=== PATIENT | male | born 1945 | race Caucasian/White ===

== ENCOUNTER 2018-04-04 05:57 | Inpatient (IN) ==
--- NOTE | 2018-04-03 22:09 | Discharge Summary ---
<Ivet Diaz - Last Filed: 04/03/18 22:07> Date of Encounter: 04/03/18 - Discharge Diagnosis (1) Status post total hip replacement, right Priority: Primary Status: Acute (2) Arthritis of right hip Priority: Primary Status: Acute (3) HTN (hypertension) Priority: Secondary Status: Chronic Qualifiers: Hypertension type: essential hypertension Qualified Code(s): I10 - Essential (primary) hypertension (4) Obesity Priority: Secondary Status: Chronic Qualifiers: Obesity type: unspecified obesity type Obesity classification: unspecified obesity classification Serious obesity comorbidity presence: without serious comorbidity Qualified Code(s): E66.9 - Obesity, unspecified (5) Insomnia Priority: Secondary Status: Chronic Qualifiers: Insomnia type: unspecified Qualified Code(s): G47.00 - Insomnia, unspecified (6) Chronic kidney disease (CKD) Priority: Secondary Status: Chronic Qualifiers: Chronic kidney disease stage: stage 2 (mild) Qualified Code(s): N18.2 - Chronic kidney disease, stage 2 (mild) (7) Anemia Priority: Secondary Status: Chronic Qualifiers: Anemia type: unspecified type Qualified Code(s): D64.9 - Anemia, unspecified - Hospital Course Hospital course: Mr. Ortiz is a 72 year old male - Time Spent with Patient Total time spent providing and/or coordinating discharge services: - Discharge Medications Home Medications: Aspirin Enteric Coated [Aspirin EC] 325 mg PO BID #20 tablet. 04/03/18 [Rx] OxyCODONE Immed Rel [Roxicodone 5 MG] 5 mg PO Q6HR PRN 7 Days #28 tablet [Rx] Atorvastatin [Lipitor] 40 mg PO DAILY 04/04/18 [History] Indomethacin 75 mg PO BID 04/04/18 [History] Indomethacin [Indocin] 25 mg PO BID PRN 04/04/18 [History] Latanoprost [Xalatan] 1 drop OP HS 04/04/18 [History] Lisinopril [Zestril] 20 mg PO DAILY 04/04/18 [History] Multivit-Min/FA/Lycopen/Lutein [Centrum Silver Men Tablet] 1 tab PO DAILY [History] Zolpidem [Ambien] 10 mg PO DAILY 04/04/18 [History] hydroCHLOROthiazide [Hydrochlorothiazide] 12.5 mg PO DAILY 04/04/18 [History] Allergies/Adverse Reactions: 3 Allergy/AdvReac Type Severity Reaction Status Date / Time No Known Allergies Allergy Verified 04/04/18 06:23 Primary care physician: Jim Reid MD - Patient Status Disposition: Home Health Service Condition: Good - Discharge Instructions Follow Up With: Jim Reid MD [Primary Care Provider] - <Jose Angel Saunders Irwin - Last Filed: 04/06/18 06:48> Orders not resulted at time of discharge: Pending orders 04/04/18 00:01 XR hip complete RT [XR] Routine H/H [Hemoglobin and Hematocrit] [HEME] Routine Date of Encounter: 04/06/18 Time of Encounter: 06:47 - Discharge Diagnosis (1) Obesity (BMI 30.0-34.9) Priority: Secondary Status: Chronic (2) Arthritis of right hip Priority: Primary Status: Chronic (3) HTN (hypertension) Priority: Secondary Status: Chronic Qualifiers: Hypertension type: essential hypertension Qualified Code(s): I10 - Essential (primary) hypertension (4) Insomnia Priority: Secondary Status: Chronic Qualifiers: Insomnia type: unspecified Qualified Code(s): G47.00 - Insomnia, unspecified (5) Chronic kidney disease (CKD) Priority: Secondary Status: Chronic Qualifiers: Chronic kidney disease stage: stage 2 (mild) Qualified Code(s): N18.2 - Chronic kidney disease, stage 2 (mild) (6) Anemia Priority: Secondary Status: Chronic Qualifiers: Anemia type: unspecified type Qualified Code(s): D64.9 - Anemia, unspecified (7) Status post total hip replacement, right Priority: Primary Status: Acute - Hospital Course Hospital course: Mr. Ortiz is a 72 year old male Status post right total hip replacement The patient had an uneventful postoperative course. They received antibiotics and physical therapy and were discharged in stable condition. There will follow -up in the office in 2 weeks. - Time Spent with Patient Total time spent providing and/or coordinating discharge services: Primary care physician: Jim Reid MD - Patient Status Functional capacity at discharge: uses cane/walker Overall status at discharge: patient is progressing back to baseline
[2018-04-04] MEDS ORDERED: CeFAZolin Syr 2,000MG/20 ML 2,000 MG/20 ML SYRINGE IVPB ONE (06:18)
[2018-04-04] MEDS ORDERED: Ringers Solution, Lactated 1,000 ML IVC SCH (06:30)
--- NOTE | 2018-04-04 06:43 | History & Physical Report ---
Date of Encounter: 04/04/18 Time of Encounter: 06:43 24 Hour HP Update - Instructions Instructions: If the History and Physical is less than 30 days old and was completed prior to A.M. admission and or procedure and has NOT been updated on calendar day of procedure please complete this update prior to performing procedure. - Update Patient reports changes in Medical Condition: No Changes in examination, assessment, or condition: No Changes in Medication: No Preop tests/diagnostics Reviewed: Yes Surgery Remains Indicated: Yes Consent for Planned Operative Procedure(s) Verified: Yes - Pre-Operative Checklist Preoperative Checklist Indicated: No Prophylactic Antibiotic Ordered: Yes Is VTE Prophylaxis Indicated?: Yes
[2018-04-04] MEDS ORDERED: Famotidine 20 MG/2 ML VIAL IVP ONE (07:09)
[2018-04-04] MEDS ORDERED: Ondansetron 4 MG/2 ML VIAL ONE (07:10)
[2018-04-04] MEDS ORDERED: *HR* FentaNYL (PF) 100 MCG/2 ML VIAL ONE (07:10)
[2018-04-04] MEDS ORDERED: Pregabalin 75 MG CAPSULE PO ONE (07:10)
[2018-04-04] MEDS ORDERED: *HR* Propofol 200 MG/20 ML VIAL IVP ONE (07:10)
[2018-04-04] MEDS ORDERED: Lidocaine -MPF 2% 2 ML VIAL ONE (07:10)
--- NOTE | 2018-04-04 07:13 | Anesthesia Evaluation PreOp ---
Date of Encounter: 04/04/18 Time of Encounter: 07:10 - Past History Planned Operation: Rt THR Cardiac History: HTN, Hyperlipidemia Pulmonary History: Denies Any Significant HX [employer] History: Denies Any Significant HX Other Medical History: Renal (CKD) Anesthesia History: No Prior Anesthetic Complications Alcohol Use: occasionally Drug use: none Medications and Allergies Aspirin Enteric Coated [Aspirin EC] 325 mg PO BID #20 tablet. 04/03/18 [Rx] OxyCODONE Immed Rel [Roxicodone 5 MG] 5 mg PO Q6HR PRN 7 Days #28 tablet [Rx] Atorvastatin [Lipitor] 40 mg PO DAILY 04/04/18 [History] Indomethacin 75 mg PO BID 04/04/18 [History] Indomethacin [Indocin] 25 mg PO BID PRN 04/04/18 [History] Latanoprost [Xalatan] 1 drop OP HS 04/04/18 [History] Lisinopril [Zestril] 20 mg PO DAILY 04/04/18 [History] Multivit-Min/FA/Lycopen/Lutein [Centrum Silver Men Tablet] 1 tab PO DAILY [History] Zolpidem [Ambien] 10 mg PO DAILY 04/04/18 [History] hydroCHLOROthiazide [Hydrochlorothiazide] 12.5 mg PO DAILY 04/04/18 [History] 3 Allergy/AdvReac Type Severity Reaction Status Date / Time No Known Allergies Allergy Verified 04/04/18 06:23 - Meds/Allergy Pre-op Review Medications Reviewed: Yes Allergies Reviewed: Yes Beta Blockers on Current Med List: No Anesthesia Results - Labs Laboratory Tests 03/31/18 03/31/18 03/31/18 16:09 16:09 16:09 Hgb 11.2 L Hct 33.3 L Plt Count 263 PT 13.1 H INR 1.2 APTT 30.3 Sodium 132 L Potassium 4.7 BUN 57 H Creatinine 1.52 H - Imaging EKG: report reviewed (SR) Anesthesia Exam O2 Sat Height 1.78 m Height 1.78 m Height 1.78 m Weight 98.43 kg Weight 98.43 kg Weight 98.43 kg O2 Sat by Pulse Oximetry 96 Vital Signs Temp Pulse Resp BP Pulse Ox 99.1 F 90 18 113/75 96 04/04/18 06:24 04/04/18 06:24 04/04/18 06:24 04/04/18 06:24 04/04/18 06:24 Height: 5'10 Weight: 217 lbs NPO (# of Hours): MN Pain Scale: 2 - HEENT Pupil (Motor): Pupils equal, EOMI Mallampati: III Teeth: Normal Oral Opening: Less than or equal to 3 - [employer] LOC: Oriented [employer] Motor: Normal RUE, Normal LUE, Normal RLE, Normal LLE, Normal Face [employer] Sensory: Normal: RUE, LUE, RLE, LLE, Face - Cardiac Rhythm: Regular Murmur: None JVD: No Carotid Bruit: No - Pulmonary Breath Sounds: bilateral Clear Respiratory Effort: Symmetrical Anesthesia Assess/Plan ASA Score: 3 (HTN CKD Extreme Age) Modified Stow Scale for Level of Consciousness: Cooperative, oriented, and tranquil Anesthetic Plan: Regional, MAC Monitoring Plan: Standard Monitors Recovery Plan: PACU (Discussed SAB with MAC, possible GA, ahrees to proceed)
[2018-04-04] MEDS ORDERED: Ethanol\\Acetic Acid\\Na Ace\\Ben 1,000 ML IRRIG.SOLN IR ONE (07:18)
[2018-04-04] MEDS ORDERED: Morphine Sulfate/PF 5mg/10mL Vial ONE (07:21)
[2018-04-04] MEDS ORDERED: *HR* Midazolam HCl 2 MG/2 ML VIAL ONE (07:26)
[2018-04-04] MEDS ORDERED: Propofol 500 MG/50 ML INFUS..BTL ONE (07:31)
[2018-04-04] MEDS ORDERED: Dexamethasone 4 MG/ML VIAL ONE (08:01)
[2018-04-04] MEDS ORDERED: *HR* PHENYLEPHRINE 1,000 MCG/10 ML SYRINGE IVP ONE ×3 (08:02→08:51)
[2018-04-04] MEDS ORDERED: *HR* Promethazine 25 MG/ML VIAL IVP PRN (08:15)
--- NOTE | 2018-04-04 08:20 | Anesthesia Procedures ---
Date of Encounter: 04/04/18 Time of Encounter: 07:00 Procedures: Anesthesia - Epidural/Spinal Patient ID/Chart reviewed: Yes Patient examined: Yes Consent Obtained: Yes Supplemental Oxygen: Nasal Cannula (2) Sedation: Versed (mg): 1 Sedation: Fentanyl (mcg): 50 Site Prep: Aseptic Technique, Sterile prep and drape Patient position: upright Amount of Local Anesthetic used: 5 Interspace Used: L2-L3 Blood: No CSF: Yes Paresthesia: No Spinal Needle Gauge: 22 Spinal Dose: 10mg isobaric bupivacaine, Duramorph 0.3mg Procedure: Patient sittin, failed attempts at lumbar level, success at T10-11, after sterile prep 10mg bupivacaine isobaric with duramorp patient tolerated procedure well Vitals + FHT's: Vital Signs/O2 Sat/Glucose, Most Current Temp Pulse Resp BP Pulse Ox 04/04/18 07:47 98 123/80 98 04/04/18 07:34 92 122/81 100 04/04/18 06:24 99.1 F 90 18 113/75 96
--- NOTE | 2018-04-04 08:45 | Orthopedic Operative Note ---
Date of procedure: 04/04/18 Pre-op diagnosis: Right hip arthritis Post-op diagnosis: same Procedure: Procedure: Right Total Hip Replacment robotic-assisted Estimated blood loss: 200 cc Hardware: Metal and polyethylene replacement. Jose DM Cup: 58 cup Femoral size 11 stem Head: 0 head with Torie Procedural Notes: 5 mm short operative versus nonoperative side as measured by preoperative CT scan. Grade 4 arthritic changes femoral head acetabular socket , procedure performed with robotic assistance. Operative procedure: The patient was brought to the operating room and placed on the operating room table. After general anesthesia was administered the patient was placed in the lateral decubitus position with the operative leg up. All pressure points were padded appropriately and the head was stabilized in the neutral position. The operative extremity was prepped and draped in the sterile surgical fashion patient received IV antibiotic prior to skin incision. 3 Steinmann pins were placed in the iliac crest 3 cm proximal to the anterior superior iliac spine this was for the robotic-assisted sensor. This was done through a small 2 cm incision. A standard posterior approach is made to the operative hip, the incision was made through the skin and subcutaneous tissue hemostasis was obtained with Bovie cautery. Using careful sharp dissection the fascia was identified and incised exposing the external rotators. The femoral checkpoint was placed leg length was measured at this time utilizing robotic assistance. The external rotators were released off the greater trochanter and tagged with # 2 FiberWire suture. The capsule was T'd open and the hip was brought into internal rotation. Patient noted to have grade 4 arthritic changes femoral head. The femoral neck cut was made at the appropriate level roughly 15 mm proximal to the lesser trochanter aced on preoperative templating. An anterior capsulotomy was performed for the anterior retractor. Soft tissues removed from the acetabulum. Patient noted to have grade 4 arthritic changes acetabulum. The acetabulum checkpoint was placed confirmed. The acetabulum was then mapped with robotic assistance. Based on the preoperative plan the acetabulum was reamed in one step with a 57 reamer. The 58 acetabulum was impacted with robotic assistance and 40 degrees of abduction and 11 degrees of anteversion. The hip was brought back in to internal rotation and prepared with the paper box maker followed by the canal finder followed by the reaming process to a size 11 /12 broaching process in 20 degrees anteversion. It was broached up to the appropriate size 11. Trial reduction revealed leg lengths close to normal. The femoral implant was impacted in place in 20 degrees of anteversion. Trial reduction found the hip to be stable with 8 head and Torie. The trials were removed and the real implants were impacted in place. The hip was reduced, patient had robotic confirmed leg length of 5 mm longer than the contralateral side. The hip had excellent stability with forward flexion to 90 degrees adduction of 30 degrees and internal rotation of 60 degrees. The hip had no shuck. The hips after 2 minutes with a Betadine saline solution. It was irrigated out with 2 L of pulse irrigation. The checkpoints were removed, Steinmann pins were removed. The hip was closed by the PA. The deep tissue was irrigated and closed deep with #1 PDS suture superficially with 0 PDS suture and skin was closed with Dermabond and zip tie. The patient was placed in a sterile dressing and abduction pillow. The patient was extubated and transferred to the recovery room in stable condition. Anesthesia: spinal Surgeon: Jose Angel Saunders Was there an temporary office assistant present: Yes Director: Ivet Diaz Estimated blood loss (cc): 200 Condition: stable Disposition: PACU
[2018-04-04] MEDS ORDERED: Naloxone 0.4 MG/ML INJ IVP PRN ×2 (09:44→10:18)
[2018-04-04] MEDS ORDERED: Ondansetron 4 MG/2 ML VIAL IVP PRN ×2 (09:44→10:18)
[2018-04-04] MEDS ORDERED: *HR* OxyCODONE/APAP 5/325 TABLET PO PRN ×2 (09:44→10:18)
[2018-04-04 09:45] LABS: Hematocrit 29.2 % (37.5-50.1); Hemoglobin 9.4 g/dL (12.9-16.9)
--- NOTE | 2018-04-04 09:46 | Anesthesia Evaluation Post Op ---
Date of Encounter: 04/04/18 Time of Encounter: 09:45 - Vital Signs Vital Signs: Vital Signs/O2 Sat/Glucose, Most Current Temp Pulse Resp BP Pulse Ox 04/04/18 09:40 98.3 F 71 15 109/66 99 04/04/18 09:30 69 15 107/68 100 04/04/18 09:20 74 15 105/69 95 04/04/18 09:10 98.6 F 86 12 105/69 97 04/04/18 07:47 98 123/80 98 04/04/18 07:34 92 122/81 100 04/04/18 06:24 99.1 F 90 18 113/75 96 - Lungs Lungs: Clear Ascult./Percussion - Airway Airway: Non-obstructed - Cardiovascular Regular Rate - Mental Status Mental Status: Alert & Oriented, Answers Appropriately - Pain Pain Scale: 0 - Nausea Vomiting Nausea Vomiting: Not Present - Hydration Hydration: Ice chips - Discharge PostOp Status: Transfer Patient to floor
[2018-04-04] MEDS ORDERED: Indomethacin 25 MG CAPSULE PO PRN (10:18)
[2018-04-04] MEDS ORDERED: Temazepam 15 MG CAPSULE PO PRN (10:18)
[2018-04-04] MEDS ORDERED: MOM Conc 10 ML UD.LIQ PO PRN (10:18)
[2018-04-04] MEDS ORDERED: Sennosides 8.6 MG TABLET PO PRN (10:18)
[2018-04-04] MEDS ORDERED: Multivit/Ca/Min/Fe/FA 1 TAB TABLET PO SCH (10:18)
[2018-04-04] MEDS ORDERED: *HR* OxyCODONE Immed Rel 5 MG TABLET PO PRN (10:18)
[2018-04-04] MEDS ORDERED: traMADol 50 MG TABLET PO PRN (10:18)
[2018-04-04] MEDS: hydroCHLOROthiazide 25 MG TABLET PO SCH (12:50)
[2018-04-04] MEDS: Lisinopril 20 MG TABLET PO SCH (12:52)
[2018-04-04] MEDS: Indomethacin 25 MG CAPSULE PO SCH ×2 (13:36→21:56)
[2018-04-04] MEDS: Ascorbic Acid 500 MG TABLET PO SCH ×2 (13:36→18:32)
[2018-04-04] MEDS: Multivit/Ca/Min/Fe/FA 1 TAB TABLET PO SCH (13:36)
--- NOTE | 2018-04-04 14:27 | Physician Discharge Referral ---
<Ivet Diaz - Last Filed: 04/04/18 14:27> Home Health/Hosp Referral Info Transfer to: Home Health Provider in Charge Post Discharge: PCP - Diagnosis (1) Status post total hip replacement, right Priority: Primary Status: Acute (2) Arthritis of right hip Priority: Primary Status: Chronic (3) HTN (hypertension) Status: Chronic (4) Obesity Status: Chronic (5) Insomnia Status: Chronic (6) Chronic kidney disease (CKD) Status: Chronic (7) Anemia Status: Chronic - Respiratory Orders None Smoking Cessation: Smoking cessation has been advised. For more information, call the [place] Tobacco Quit Line at 2-342-DUWS-NOW. - Activity Activity Orders: Up ad angelica, Ambulate, Walker - Services Needed Following services are medically necessary services: Nursing, Home Health Aide, Physical Therapy, Occupational Therapy - Transfer Medications Home Medications: Aspirin Enteric Coated [Aspirin EC] 325 mg PO BID #20 tablet. 04/03/18 [Rx] OxyCODONE Immed Rel [Roxicodone 5 MG] 5 mg PO Q6HR PRN 7 Days #28 tablet [Rx] Atorvastatin [Lipitor] 40 mg PO DAILY 04/04/18 [History] Indomethacin 75 mg PO BID 04/04/18 [History] Indomethacin [Indocin] 25 mg PO BID PRN 04/04/18 [History] Latanoprost [Xalatan] 1 drop OP HS 04/04/18 [History] Lisinopril [Zestril] 20 mg PO DAILY 04/04/18 [History] Multivit-Min/FA/Lycopen/Lutein [Centrum Silver Men Tablet] 1 tab PO DAILY [History] Zolpidem [Ambien] 10 mg PO DAILY 04/04/18 [History] hydroCHLOROthiazide [Hydrochlorothiazide] 12.5 mg PO DAILY 04/04/18 [History] Allergies/Adverse Reactions: 3 Allergy/AdvReac Type Severity Reaction Status Date / Time No Known Allergies Allergy Verified 04/04/18 06:23 Certification: Further, I certify that my clinical findings support that this patient is homebound (i.e. absences from home require considerable and taxing effort and are for medical reasons or adventism services or infrequently or short duration when for other reasons) because: Homebound Reason: Post-surgery restriction and or conditions limit ability to leave home Attestation: My signature below is to certify that this patient is under my care and that I, or nurse practitioner, or a physician's fleet assistant working with me, has a face-to -face encounter with this patient. <Jose Angel Saunders - Last Filed: 04/06/18 06:49> - Diagnosis (1) Obesity (BMI 30.0-34.9) Status: Chronic (2) Arthritis of right hip Status: Chronic (3) HTN (hypertension) Status: Chronic (4) Insomnia Status: Chronic (5) Chronic kidney disease (CKD) Status: Chronic (6) Anemia Status: Chronic (7) Status post total hip replacement, right Status: Acute - Respiratory Orders Smoking Cessation: Smoking cessation has been advised. For more information, call the [place] Tobacco Quit Line at 3-089-IWKZ-NOW. Certification: Further, I certify that my clinical findings support that this patient is homebound (i.e. absences from home require considerable and taxing effort and are for medical reasons or adventism services or infrequently or short duration when for other reasons) because: Attestation: My signature below is to certify that this patient is under my care and that I, or nurse practitioner, or a physician's fleet assistant working with me, has a face-to -face encounter with this patient.
[2018-04-04] MEDS ORDERED: 0.9 % Sodium Chloride 250 ML ONE (14:36)
[2018-04-04] MEDS ORDERED: *HR* Enoxaparin 30 MG/0.3 ML SYRINGE SQ SCH (18:00)
[2018-04-04] MEDS: CeFAZolin Pre 2,000 MG/100 ML 2,000 MG/100 ML BAG IVPB SCH (18:29)
[2018-04-04] MEDS: Ringers Solution, Lactated 1,000 ML IVC SCH (18:32)
[2018-04-04] MEDS: *HR* Enoxaparin 30 MG/0.3 ML SYRINGE SQ SCH (18:32)
[2018-04-04] MEDS: Latanoprost 2.5 ML BOTTLE BOTH EYES SCH (22:43)
[2018-04-05] MEDS: CeFAZolin Pre 2,000 MG/100 ML 2,000 MG/100 ML BAG IVPB SCH (00:11)
[2018-04-05] MEDS ORDERED: 0.9 % Sodium Chloride 250 ML ONE (00:43)
[2018-04-05] MEDS: *HR* Enoxaparin 30 MG/0.3 ML SYRINGE SQ SCH ×2 (05:28→17:17)
--- NOTE | 2018-04-05 06:23 | Orthopedics Progress Note ---
Date of Encounter: 04/05/18 Time of Encounter: 06:22 - Assessment and Plan (1) Obesity (BMI 30.0-34.9) Current Visit: Yes Status: Chronic (2) Arthritis of right hip Current Visit: No Status: Chronic (3) HTN (hypertension) Current Visit: No Status: Chronic Qualifiers: Hypertension type: essential hypertension Qualified Code(s): I10 - Essential (primary) hypertension (4) Insomnia Current Visit: No Status: Chronic Qualifiers: Insomnia type: unspecified Qualified Code(s): G47.00 - Insomnia, unspecified (5) Chronic kidney disease (CKD) Current Visit: No Status: Chronic Qualifiers: Chronic kidney disease stage: stage 2 (mild) Qualified Code(s): N18.2 - Chronic kidney disease, stage 2 (mild) (6) Anemia Current Visit: No Status: Chronic Qualifiers: Anemia type: unspecified type Qualified Code(s): D64.9 - Anemia, unspecified (7) Status post total hip replacement, right Current Visit: No Status: Acute Subjective Interval history: Patient was seen this morning doing well without complaints. Afebrile vital signs stable. Operative extremity: Neurovascularly intact Dressing clean dry and intact Calves nontender Assessment and plan: Continue with postoperative care Patient admitted with anemia, slight decrease postsurgical patient received 2 units for hypertension will monitor vitals today. Objective Vital signs: Vital Signs Temp Pulse Resp BP Pulse Ox 04/05/18 03:35 97.7 F 66 15 92/54 95 04/05/18 02:33 97.8 F 72 18 95/60 97 04/05/18 01:14 97.4 F L 72 15 100/65 97 04/05/18 00:59 98.3 F 69 15 90/53 95 04/04/18 23:07 98.0 F 72 18 91/52 96 04/04/18 21:47 86/50 04/04/18 19:58 98.7 F 72 18 83/43 97 04/04/18 17:35 97.6 F 77 16 89/52 95 04/04/18 16:42 97.6 F 77 18 87/51 95 04/04/18 15:15 97.9 F 73 16 90/56 98 04/04/18 14:55 97.8 F 74 16 91/52 97 04/04/18 14:42 97.8 F 74 16 83/50 97 04/04/18 11:49 98.3 F 83 18 104/68 97 04/04/18 10:56 97.9 F 74 16 100/63 98 04/04/18 09:51 97.4 F L 80 16 108/71 98 04/04/18 09:40 98.3 F 71 15 109/66 99 04/04/18 09:30 69 15 107/68 100 04/04/18 09:20 74 15 105/69 95 04/04/18 09:10 98.6 F 86 12 105/69 97 04/04/18 07:47 98 123/80 98 04/04/18 07:34 92 122/81 100 04/04/18 06:24 99.1 F 90 18 113/75 96 Intake and Output 04/04/18 04/04/18 04/05/18 15:59 23:59 07:59 Intake Total 240 / 240 964 / 964 300 / 300 Output Total 300 / 300 700 / 700 200 / 200 Balance -60 / -60 264 / 264 100 / 100 Intake: IV Fluids 100 / 100 Ancef Premix 2,000 MG/100 ML 2, 100 / 100 000 mg In 100 ml @ 200 mls/hr IVPB Q8HR [facility] Rx#:[id number] Oral 240 / 240 600 / 600 0 / 0 Blood Product 0 / 0 264 / 264 300 / 300 Rbcs Leuko Poor As-1 Unit 300 / 300 [id number] Rbcs Leuko Poor As-1 Unit 0 / 0 264 / 264 [id number] Output: Urine 0 / 0 200 / 200 Estimated Blood Loss 300 / 300 Straight Cath 700 / 700 Other: Meal Lunch Dinner Percent of Meal Consumed 80% 90% - Labs CBC & BMP: 04/04/18 09:25 Labs: Abnormal lab results Hgb 9.4 g/dL (12.9-16.9) L D 04/04/18 09:25 Hct 29.2 % (37.5-50.1) L 04/04/18 09:25 - VTE Documentation of Mechanical Device: Venous foot pump, device Consult Discharge Plan - Plan Referrals: Jim Reid MD [Primary Care Provider] -
[2018-04-05 07:15] LABS: Calcium 9.1 mg/dL (8.6-10.3); Potassium 4.9 mEq/L (3.5-5.1)
[2018-04-05] MEDS: Lisinopril 20 MG TABLET PO SCH (07:44)
[2018-04-05] MEDS: hydroCHLOROthiazide 25 MG TABLET PO SCH (07:44)
[2018-04-05] MEDS: Ascorbic Acid 500 MG TABLET PO SCH ×2 (07:48→17:17)
[2018-04-05] MEDS: Indomethacin 25 MG CAPSULE PO SCH ×2 (07:48→21:19)
[2018-04-05] MEDS: Multivit/Ca/Min/Fe/FA 1 TAB TABLET PO SCH (07:48)
[2018-04-05 07:52] LABS: Hematocrit 30.8 % (37.5-50.1); Hemoglobin 10.1 g/dL (12.9-16.9)
[2018-04-05] MEDS: Ringers Solution, Lactated 1,000 ML IVC SCH (10:38)
--- NOTE | 2018-04-05 12:17 | Event Note ---
Date of Encounter: 04/05/18 Time of Encounter: 12:15 PCR - POD#1 - Right THR Patient seen at bedside. Labs reviewed. CHRONIC KIDNEY DISEASE - LABS IMPROVED FROM HIS BASELINE BASELINE LABS: GFR: 45 Cre 1.52 NA - 132 04/05 labs: GFR: 49 Cre: 1.42 Pre-operative Anemia: H/H - 11.1/32 H/H - improved s/p 2 units of pRBCs 04/04 Pain control: yes Participating in PT. All questions and concerns addressed. Educated on use of incentive spirometer. Encouraged ambulation and proper hydration. Patient educated on post-operative restrictions and post-operative care. Addressed: home with hh - continuity placed Discharge plan: Home
[2018-04-05] MEDS: Latanoprost 2.5 ML BOTTLE BOTH EYES SCH (21:19)
[2018-04-06 01:52] LABS: Hematocrit 29.6 % (37.5-50.1); Hemoglobin 9.9 g/dL (12.9-16.9)
[2018-04-06 02:11] LABS: BUN/Creatinine Ratio 36 (6-26); Blood Urea Nitrogen 44 mg/dL (8-23); Calcium 9.2 mg/dL (8.6-10.3); Carbon Dioxide 25 mEq/L (23-29); Chloride 103 mEq/L (98-107); Glucose 137 mg/dL (70-105); Osmolality,Calculated 291 (280-300); Potassium 4.3 mEq/L (3.5-5.1); Sodium 134 mEq/L (136-145); eGFR For African Americans > 60 (> 60); eGFR For Non-African Americans 59 (> 60)
[2018-04-06] MEDS: *HR* Enoxaparin 30 MG/0.3 ML SYRINGE SQ SCH (05:26)
--- NOTE | 2018-04-06 06:49 | Orthopedics Progress Note ---
Date of Encounter: 04/06/18 Time of Encounter: 06:48 - Assessment and Plan (1) Obesity (BMI 30.0-34.9) Current Visit: Yes Status: Chronic (2) Arthritis of right hip Current Visit: No Status: Chronic (3) HTN (hypertension) Current Visit: No Status: Chronic Qualifiers: Hypertension type: essential hypertension Qualified Code(s): I10 - Essential (primary) hypertension (4) Insomnia Current Visit: No Status: Chronic Qualifiers: Insomnia type: unspecified Qualified Code(s): G47.00 - Insomnia, unspecified (5) Chronic kidney disease (CKD) Current Visit: No Status: Chronic Qualifiers: Chronic kidney disease stage: stage 2 (mild) Qualified Code(s): N18.2 - Chronic kidney disease, stage 2 (mild) (6) Anemia Current Visit: No Status: Chronic Qualifiers: Anemia type: unspecified type Qualified Code(s): D64.9 - Anemia, unspecified (7) Status post total hip replacement, right Current Visit: No Status: Acute Subjective Interval history: Patient was seen this morning doing well without complaints. Afebrile vital signs stable. Operative extremity: Neurovascularly intact Dressing clean dry and intact Calves nontender Assessment and plan: Continue with postoperative care Hematocrit 29.9 discharged today Objective Vital signs: Vital Signs Temp Pulse Resp BP Pulse Ox 04/06/18 06:38 97.6 F 85 18 110/69 97 04/06/18 03:33 98.3 F 78 17 93/61 96 04/05/18 23:25 98.9 F 91 18 131/79 94 04/05/18 19:15 98.2 F 87 17 128/76 99 04/05/18 14:40 98.4 F 80 18 100/66 99 04/05/18 10:32 98.2 F 72 18 114/70 98 Intake and Output 04/05/18 04/05/18 04/06/18 15:59 23:59 07:59 Intake Total 1100 / 1100 Output Total 400 / 400 300 / 300 Balance 1100 / 1100 -400 / -400 -300 / -300 Intake: IV Fluids 1000 / 1000 Lactated Ringers 1,000 ML @ 75 1000 / 1000 mls/hr IVC .[id number] [facility] Rx#: [id number] Oral 100 / 100 Output: Urine 400 / 400 300 / 300 Other: Meal Lunch Percent of Meal Consumed 95% # Voids 1 1 - Labs CBC & BMP: 04/06/18 01:36 04/06/18 01:36 Labs: Abnormal lab results Hgb 9.9 g/dL (12.9-16.9) L 04/06/18 01:36 Hct 29.6 % (37.5-50.1) L 04/06/18 01:36 Sodium 134 mEq/L (136-145) L 04/06/18 01:36 BUN 44 mg/dL (8-23) H 04/06/18 01:36 Est GFR (Non-Af Amer) 59 (> 60) L 04/06/18 01:36 BUN/Creatinine Ratio 36 (6-26) H 04/06/18 01:36 Glucose 137 mg/dL (70-105) H 04/06/18 01:36 - VTE Documentation of Mechanical Device: Venous foot pump, device Consult Discharge Plan - Plan Referrals: Jim Reid MD [Primary Care Provider] -
[2018-04-06] MEDS: Multivit/Ca/Min/Fe/FA 1 TAB TABLET PO SCH (08:32)
[2018-04-06] MEDS: Ascorbic Acid 500 MG TABLET PO SCH (08:32)
[2018-04-06] MEDS: hydroCHLOROthiazide 25 MG TABLET PO SCH (08:32)
[2018-04-06] MEDS: Lisinopril 20 MG TABLET PO SCH (08:32)
[2018-04-06] MEDS: Indomethacin 25 MG CAPSULE PO SCH (08:32)
[2018-04-06 11:32] VITALS: BP 132/76
== END 2018-04-06 13:51 | disposition home health service (06) | DRG 470 ==
LOC: SAMDAY 05:57 → 3NENU 10:05
PROVIDERS: ADMIT Orthopaedic Surgery; ATTEND Orthopaedic Surgery

== ENCOUNTER 2018-04-08 20:12 | Inpatient (IN) ==
[2018-04-08] MEDS ORDERED: *HR* FentaNYL (PF) 100 MCG/2 ML VIAL IVP ONE (20:32)
[2018-04-08] MEDS ORDERED: Ondansetron 4 MG/2 ML VIAL IVP ONE (20:32)
[2018-04-08] MEDS ORDERED: Pantoprazole 80 MG in 0.9 % Sodium Chloride 50 ML IVPB ONE (20:32)
[2018-04-08] MEDS ORDERED: 0.9 % Sodium Chloride 1,000 ML IVC ONE ×2 (20:32→21:53)
[2018-04-08 20:49] LABS: Hematocrit 36.5 % (37.5-50.1); Mean Corpuscular HGB Conc 34.5 g/dL (31.6-35.5); Mean Corpuscular Hemoglobin 33.2 pg (28.0-33.3); Mean Corpuscular Volume 96.3 fL (83.0-100.0); Mean Platelet Volume 8.6 fL (9.4-12.4); Monocytes # 0.7 K/mcL (0.0-1.3); Platelet Count 431 K/mcL (140-400); Red Blood Count 3.79 M/mcL (4.19-5.50); Red Cell Distribution Width 13.2 % (11.5-14.5)
[2018-04-08 20:51] LABS: Hemoglobin 12.6 g/dL (12.9-16.9)
[2018-04-08 20:56] LABS: INR 1.1; Prothrombin Time 12.3 Seconds (9.4-12.1)
--- NOTE | 2018-04-08 20:57 | Emergency Department Note ---
Disposition Clinical Impression: Elevated troponin I level, Perforated abdominal viscus Disposition: Admitted As Inpatient Condition: Fair Referrals: Jim Reid MD [Primary Care Provider] - Forms: ED Satisfaction Letter, Work/School Release Time of Disposition: 00:04 Abdominal Pain HPI - General Chief Complaint: ED Abdominal Pain Stated Complaint: ABD Pain Time Seen by Provider: 04/08/18 20:32 Source: EMS Mode of arrival: EMS Limitations: no limitations Nursing Notes Reviewed: Yes Vital Signs Reviewed: Yes - History of Present Illness HPI Narrative: This is a 72 year-old male with history of HTN, HLD, and arthritis who presented via EMS. He underwent right hip replacement 4 days ago and was discharged 2 days ago. He reports chronic abdominal pain, which he attributes to the Indocin he takes regularly for arthritis, but about 6 hours ago, the pain became very severe. He also notes dizziness, cold sweats, and dyspnea. He reports 2 dark (but he says not coffee-ground) BMs this morning, no bowel movement since then. He denies any vomiting. Patient denies any history of GIB. Pt Subjective Complaint: abdominal pain Onset (ago): hour(s) (6) Consistency: Worsening Location: diffuse Pain Severity: severe Pain Scale: 6 Quality: sharp Migration to: no migration Improves with: nothing Worsens with: movement Context: recent surgery/procedure Associated symptoms: Reports: melena. Denies: vomiting, fever, hematemesis, hematochezia - Related Data Home Medications Medication Instructions Recorded Confirmed Atorvastatin [Lipitor] 40 mg PO DAILY 04/04/18 04/04/18 Indomethacin 75 mg PO BID 04/04/18 04/04/18 Indomethacin [Indocin] 25 mg PO BID PRN 04/04/18 04/04/18 Latanoprost [Xalatan] 1 drop OP HS 04/04/18 04/04/18 Lisinopril [Zestril] 20 mg PO DAILY 04/04/18 04/04/18 Multivit-Min/FA/Lycopen/Lutein 1 tab PO DAILY 04/04/18 04/04/18 [Centrum Silver Men Tablet] Zolpidem [Ambien] 10 mg PO DAILY 04/04/18 04/04/18 hydroCHLOROthiazide 12.5 mg PO DAILY 04/04/18 04/04/18 [Hydrochlorothiazide] Previous Rx's Medication Instructions Recorded Aspirin Enteric Coated [Aspirin EC] 325 mg PO BID #20 tablet. 04/03/18 OxyCODONE Immed Rel [Roxicodone 5 5 mg PO Q6HR PRN 7 Days #28 tablet 04/03/18 MG] Allergies Allergy/AdvReac Type Severity Reaction Status Date / Time No Known Allergies Allergy Verified 04/04/18 06:23 All systems ED: reviewed and negative except as stated. Constitutional: Denies: fever Cardiovascular: Denies: chest pain Respiratory: Reports: dyspnea Gastrointestinal: Reports: abdominal pain. Denies: vomiting, hematemesis, hematochezia Abdominal Pain PMH - Past Medical History Medical history: Reports: arthritis, hyperlipidemia, hypertension Male Surgical History: Reports: herniorrhaphy, hip replacement Psychiatric history: Reports: no psych history - Social History Smoking status: Never smoker Alcohol use: Reports: none Drug use: Reports: none Physical Exam - General Limitations: no limitations General appearance: alert - Head Head exam: atraumatic, normocephalic - Eye Eye exam: Present: normal appearance. Absent: scleral icterus - ENT ENT exam: normal exam - Respiratory Respiratory exam: Present: normal lung sounds bilaterally. Absent: respiratory distress - Cardiovascular Cardiovascular exam: Present: normal rhythm, tachycardia - Abdominal Exam Abdominal exam: Present: soft, tenderness, distention. Absent: guarding, rebound, rigidity - Rectal Exam Weapons Officer present during exam: Yes Rectal exam: Present: normal rectal tone, heme (+) stool, other (dark but not melanotic stool) - Male exam: Present: normal inspection - Extremities Exam Extremities exam: Present: normal inspection - Neurological Exam Neurological exam: Present: alert, oriented X3. Absent: motor sensory deficit - Psychiatric Psychiatric exam: Present: normal affect, normal mood - Skin Skin exam: Present: warm, dry, intact, pallor Course - Reevaluation(s) Reevaluation #2: Updated patient and his about findings thus far and our plans based on Dr. Escamilla's recommendations. He asks that we discuss this with Dr. Reid, so we will page him. Time: 22:01 Reevaluation #3: Update patient on test results and plans and answered his questions. Time: 00:03 Additional Reevaluation(s): 00:30 - Discussed case with Dr. Sprague. He agrees for resident physician Dr. Winston to place the central line. I have discussed the procedure with patient, and he is in agreement. - Consultations Consultation #1: Received confirmation of free air from the radiologist. Paged surgeon marine service station attendant. Time: 21:47 Consultation #2: Discussed case with surgeon marine service station attendant, Dr. Escamilla. We will put down an NGT and give empiric antibiotics. He requests CT with oral contrast. Asks that the hospitalist admit patient to the ICU. Time: 20:50 Consultation #3: Discussed CT results with Dr. Escamilla. We will admit patient to ICU with NGT, which will be advanced. Paged hospitalist for admission. Time: 00:03 Additional Consultation(s): 12:30 AM - Discussed case with Dr. Ko, and he has accepted patient for admission to ICU. I've extended patient's antibiotic coverage to include Flagyl , per his request. Although patient's BP has been holding steady in the low/ normal range since intial hypotensive readings, he requests central line placement, if possible, but will accept patient regardless. Vital Signs Temperature 98.0 F 04/08/18 20:13 Pulse Rate 136 04/08/18 20:13 Respiratory Rate 20 04/08/18 20:13 Blood Pressure 71/49 04/08/18 20:13 O2 Sat by Pulse Oximetry 91 04/08/18 20:13 Temperature 98.0 F 04/08/18 20:13 Pulse Rate 118 04/08/18 23:31 Respiratory Rate 20 04/08/18 23:31 Blood Pressure 98/59 04/08/18 23:31 O2 Sat by Pulse Oximetry 95 04/08/18 23:31 Oxygen Delivery Oxygen Delivery Nasal Cannula Abdominal Pain - Lab Data Lab results reviewed: Yes I reviewed the patient's lab results. Result diagrams: 04/08/18 20:32 04/08/18 20:32 Lab Results 04/08/18 04/08/18 04/08/18 Range/Units 20:32 20:32 20:32 WBC 9.2 (4.3-11.1) K/mcL RBC 3.79 L (4.19-5.50) M/mcL Hgb 12.6 L D (12.9-16.9) g/dL Hct 36.5 L (37.5-50.1) % MCV 96.3 (83.0-100.0) fL MCH 33.2 (28.0-33.3) pg MCHC 34.5 (31.6-35.5) g/dL RDW 13.2 (11.5-14.5) % Plt Count 431 H (140-400) K/mcL MPV 8.6 L (9.4-12.4) fL Seg Neutrophils % 70.0 % Band Neutrophils % 16.0 H (0-4) % Lymphocytes % 4.0 % Monocytes % 8.0 % Metamyelocytes % 2.0 H (0) % Neutrophils # 7.9 (1.6-8.9) K/mcL Lymphocytes # 0.4 L (0.6-4.6) K/mcL Monocytes # 0.7 (0.0-1.3) K/mcL Platelet Estimate Slight increase H (Normal) PT 12.3 H (9.4-12.1) Seconds INR 1.1 APTT 26.8 (26.0-36.0) Seconds Sodium 134 L (136-145) mEq/L Potassium 4.3 (3.5-5.1) mEq/L Chloride 99 (98-107) mEq/L Carbon Dioxide 21 L (23-29) mEq/L BUN 38 H (8-23) mg/dL Creatinine 1.59 H (0.70-1.30) mg/dL Est GFR ( Amer) 52 L (> 60) Est GFR (Non-Af Amer) 43 L (> 60) BUN/Creatinine Ratio 24 (6-26) Glucose 157 H (70-105) mg/dL Calculated Osmolality 290 (280-300) Calcium 10.4 H (8.6-10.3) mg/dL Total Bilirubin 1.0 (0.3-1.0) mg/dL AST 34 (13-39) Units/L ALT 24 (7-52) Units/L Alkaline Phosphatase 110 H (34-104) Units/L Troponin I 0.04 H* (< 0.04) ng/mL Serum Total Protein 6.5 (6.4-8.9) g/dL Albumin 3.5 (3.5-5.7) g/dL Globulin 3.0 (2.4-3.5) g/dL Albumin/Globulin Ratio 1.2 (1.1-2.2) Lipase 47 (11-82) Units/L Blood Type Antibody Screen Crossmatch 04/08/18 Range/Units 20:40 WBC (4.3-11.1) K/mcL RBC (4.19-5.50) M/mcL Hgb (12.9-16.9) g/dL Hct (37.5-50.1) % MCV (83.0-100.0) fL MCH (28.0-33.3) pg MCHC (31.6-35.5) g/dL RDW (11.5-14.5) % Plt Count (140-400) K/mcL MPV (9.4-12.4) fL Seg Neutrophils % % Band Neutrophils % (0-4) % Lymphocytes % % Monocytes % % Metamyelocytes % (0) % Neutrophils # (1.6-8.9) K/mcL Lymphocytes # (0.6-4.6) K/mcL Monocytes # (0.0-1.3) K/mcL Platelet Estimate (Normal) PT (9.4-12.1) Seconds INR APTT (26.0-36.0) Seconds Sodium (136-145) mEq/L Potassium (3.5-5.1) mEq/L Chloride (98-107) mEq/L Carbon Dioxide (23-29) mEq/L BUN (8-23) mg/dL Creatinine (0.70-1.30) mg/dL Est GFR ( Amer) (> 60) Est GFR (Non-Af Amer) (> 60) BUN/Creatinine Ratio (6-26) Glucose (70-105) mg/dL Calculated Osmolality (280-300) Calcium (8.6-10.3) mg/dL Total Bilirubin (0.3-1.0) mg/dL AST (13-39) Units/L ALT (7-52) Units/L Alkaline Phosphatase (34-104) Units/L Troponin I (< 0.04) ng/mL Serum Total Protein (6.4-8.9) g/dL Albumin (3.5-5.7) g/dL Globulin (2.4-3.5) g/dL Albumin/Globulin Ratio (1.1-2.2) Lipase (11-82) Units/L Blood Type A POSITIVE Antibody Screen NEGATIVE Crossmatch See Detail - Radiology Data Radiology results reviewed: Yes I reviewed the patient's radiology results. XR/XR acute abdominal series IMPRESSION: 1. Subdiaphragmatic free air concerning for bowel perforation. CT of the abdomen and pelvis is recommended for further evaluation. 2. Low lung volumes with bibasilar atelectasis. 3. Dilated gas-filled loops of bowel in the mid abdomen may reflect ileus or small-bowel obstruction and can be evaluated at the time of CT. Findings were discussed with Nahid Monzon at 9:47 pm on 04/08/2018. CT/CT abd pelvis wo iv oral only IMPRESSION: Pneumoperitoneum. Ascites. Ileus. Sigmoid diverticulosis. Cholelithiasis. NG tube tip near the GE junction. Recommend advancing at 10-20 cm and reimaging. Ankylosing spondylitis. Nonobstructing nephroliths. - EKG Data EKG attestation: Yes I reviewed and interpreted this EKG. Rate: tachycardia [place]/QRS: left axis deviation When compared to previous EKG there are: previous EKG unavailable Interpretation: nonspecific ST-T wave changes
[2018-04-08 20:58] LABS: Activated Partial Thrombo Time 26.8 Seconds (26.0-36.0)
[2018-04-08 21:12] LABS: Lymphocytes # 0.4 K/mcL (0.6-4.6); Neutrophils # 7.9 K/mcL (1.6-8.9)
[2018-04-08 21:15] LABS: Albumin 3.5 g/dL (3.5-5.7); Albumin/Globulin Ratio 1.2 (1.1-2.2); Calcium 10.4 mg/dL (8.6-10.3); Potassium 4.3 mEq/L (3.5-5.1); Total Protein 6.5 g/dL (6.4-8.9)
[2018-04-08 21:18] LABS: Troponin I 0.04 ng/mL (< 0.04)
[2018-04-08] MEDS ORDERED: Ampicillin/Sulbactam 3,000 MG in 0.9 % Sodium Chloride Mini Bag 100 ML IVPB ONE (21:53)
[2018-04-09] MEDS ORDERED: MetroNIDAZOLE 500 MG/100 ML 500 MG/100 ML BAG IVPB ONE (00:29)
[2018-04-09] MEDS ORDERED: *HR* FentaNYL (PF) 100 MCG/2 ML VIAL IVP ONE (00:46)
--- NOTE | 2018-04-09 02:10 | Emergency Department Note ---
Disposition Clinical Impression: Elevated troponin I level, Perforated abdominal viscus Disposition: Admitted As Inpatient Condition: Fair General Adult HPI - General Chief complaint: ED Abdominal Pain Stated complaint: ABD Pain Time Seen by Provider: 04/08/18 20:32 Source: EMS Mode of arrival: EMS Limitations: no limitations - History of Present Illness HPI Narrative: I was asked by attending Dr. Flores to assist with placement of central line. Please see his note for further details. I was supervise by my ED attending Dr. Sprague. Pain Scale: 0 - Related Data Home Medications Medication Instructions Recorded Confirmed Atorvastatin [Lipitor] 40 mg PO DAILY 04/04/18 04/09/18 Indomethacin 75 mg PO BID 04/04/18 04/09/18 Indomethacin [Indocin] 25 mg PO BID PRN 04/04/18 04/09/18 Latanoprost [Xalatan] 1 drop OP HS 04/04/18 04/09/18 Lisinopril [Zestril] 20 mg PO DAILY 04/04/18 04/09/18 Multivit-Min/FA/Lycopen/Lutein 1 tab PO DAILY 04/04/18 04/09/18 [Centrum Silver Men Tablet] Zolpidem [Ambien] 10 mg PO DAILY 04/04/18 04/09/18 hydroCHLOROthiazide 12.5 mg PO DAILY 04/04/18 04/09/18 [Hydrochlorothiazide] Previous Rx's Medication Instructions Recorded Aspirin Enteric Coated [Aspirin EC] 325 mg PO BID #20 tablet. 04/03/18 OxyCODONE Immed Rel [Roxicodone 5 5 mg PO Q6HR PRN 7 Days #28 tablet 04/03/18 MG] Allergies Allergy/AdvReac Type Severity Reaction Status Date / Time No Known Allergies Allergy Verified 04/04/18 06:23 Constitutional: Denies: fever Cardiovascular: Denies: chest pain Respiratory: Reports: dyspnea Gastrointestinal: Reports: abdominal pain. Denies: vomiting, hematemesis, hematochezia Past Medical History - Past Medical History Medical history: Reports: arthritis, hyperlipidemia, hypertension Surgical history: Reports: other Psychiatric history: Reports: no psych history - Social History Smoking Status: Never smoker Smokeless Tobacco Status: No Alcohol use: Reports: none Drug use: Reports: none Physical Exam - General Limitations: no limitations General appearance: alert Course Vital Signs Temperature 98.0 F 04/08/18 20:13 Pulse Rate 136 04/08/18 20:13 Respiratory Rate 20 04/08/18 20:13 Blood Pressure 71/49 04/08/18 20:13 O2 Sat by Pulse Oximetry 91 04/08/18 20:13 Temperature 98.0 F 04/08/18 20:13 Pulse Rate 110 04/09/18 02:00 Respiratory Rate 20 04/09/18 02:00 Blood Pressure 91/58 04/09/18 02:00 O2 Sat by Pulse Oximetry 93 04/09/18 02:00 Oxygen Delivery Oxygen Delivery Nasal Cannula Procedures - Central Line Placement Right IJ Central Line Inserted*: Yes Central Line Catheter Replacement*: No Central Line Insertion: elective Consent Obtained: verbal consent, written consent Procedural Pause: verify patient name and date of , timeout performed per policy, jeannette and assess the site, assemble equipment and verify supplies, perform hand hygiene Patient Placed on Monitor/Pulse Ox: Yes During the Procedure: clinician is wearing sterile gloves, cap, mask,& gown during insertion, sterile field and sterile technique are maintained, patient's face is covered with drape or mask and wearing a cap, everyone in room is wearing a mask Central Line Prep: Chlorhexidine scrub Prep the Procedure Site: apply chloraprep to the skin using a back and forth scrubbing motion, apply chloraprep for 30 seconds (upper body), 1-2 min ( femoral sites), allow prep to dry, drape the patient with a full body drape Local Anesthetic: lidocaine 1% Amount of anesthesia used (mL): 2 Ultrasound Used for Placement: Yes Central Line Lumen Inserted: triple Post Procedure: sutured in place, good blood return, all ports aspirated, flushed, capped, sterile dressing applied, guide wire removed and visualized, dressing is dated Post Procedure X-Ray: tip of catheter in good position, no pneumothorax seen Patient Tolerated Procedure: well, no complications Complications: none Name of Clinician Inserting Central Line: Glenn Winston, Clinician Assisting/Completing Checklist: Dr. Roberto Sprague Date: 04/09/18 Time: 02:10 Medical Decision Making - Lab Data Result diagrams: 04/08/18 20:32 04/08/18 20:32 Lab Results 04/08/18 04/08/18 04/08/18 Range/Units 20:32 20:32 20:32 WBC 9.2 (4.3-11.1) K/mcL RBC 3.79 L (4.19-5.50) M/mcL Hgb 12.6 L D (12.9-16.9) g/dL Hct 36.5 L (37.5-50.1) % MCV 96.3 (83.0-100.0) fL MCH 33.2 (28.0-33.3) pg MCHC 34.5 (31.6-35.5) g/dL RDW 13.2 (11.5-14.5) % Plt Count 431 H (140-400) K/mcL MPV 8.6 L (9.4-12.4) fL Seg Neutrophils % 70.0 % Band Neutrophils % 16.0 H (0-4) % Lymphocytes % 4.0 % Monocytes % 8.0 % Metamyelocytes % 2.0 H (0) % Neutrophils # 7.9 (1.6-8.9) K/mcL Lymphocytes # 0.4 L (0.6-4.6) K/mcL Monocytes # 0.7 (0.0-1.3) K/mcL Platelet Estimate Slight increase H (Normal) PT 12.3 H (9.4-12.1) Seconds INR 1.1 APTT 26.8 (26.0-36.0) Seconds Sodium 134 L (136-145) mEq/L Potassium 4.3 (3.5-5.1) mEq/L Chloride 99 (98-107) mEq/L Carbon Dioxide 21 L (23-29) mEq/L BUN 38 H (8-23) mg/dL Creatinine 1.59 H (0.70-1.30) mg/dL Est GFR ( Amer) 52 L (> 60) Est GFR (Non-Af Amer) 43 L (> 60) BUN/Creatinine Ratio 24 (6-26) Glucose 157 H (70-105) mg/dL Calculated Osmolality 290 (280-300) Calcium 10.4 H (8.6-10.3) mg/dL Total Bilirubin 1.0 (0.3-1.0) mg/dL AST 34 (13-39) Units/L ALT 24 (7-52) Units/L Alkaline Phosphatase 110 H (34-104) Units/L Troponin I 0.04 H* (< 0.04) ng/mL Serum Total Protein 6.5 (6.4-8.9) g/dL Albumin 3.5 (3.5-5.7) g/dL Globulin 3.0 (2.4-3.5) g/dL Albumin/Globulin Ratio 1.2 (1.1-2.2) Lipase 47 (11-82) Units/L Blood Type Antibody Screen Crossmatch 04/08/18 Range/Units 20:40 WBC (4.3-11.1) K/mcL RBC (4.19-5.50) M/mcL Hgb (12.9-16.9) g/dL Hct (37.5-50.1) % MCV (83.0-100.0) fL MCH (28.0-33.3) pg MCHC (31.6-35.5) g/dL RDW (11.5-14.5) % Plt Count (140-400) K/mcL MPV (9.4-12.4) fL Seg Neutrophils % % Band Neutrophils % (0-4) % Lymphocytes % % Monocytes % % Metamyelocytes % (0) % Neutrophils # (1.6-8.9) K/mcL Lymphocytes # (0.6-4.6) K/mcL Monocytes # (0.0-1.3) K/mcL Platelet Estimate (Normal) PT (9.4-12.1) Seconds INR APTT (26.0-36.0) Seconds Sodium (136-145) mEq/L Potassium (3.5-5.1) mEq/L Chloride (98-107) mEq/L Carbon Dioxide (23-29) mEq/L BUN (8-23) mg/dL Creatinine (0.70-1.30) mg/dL Est GFR ( Amer) (> 60) Est GFR (Non-Af Amer) (> 60) BUN/Creatinine Ratio (6-26) Glucose (70-105) mg/dL Calculated Osmolality (280-300) Calcium (8.6-10.3) mg/dL Total Bilirubin (0.3-1.0) mg/dL AST (13-39) Units/L ALT (7-52) Units/L Alkaline Phosphatase (34-104) Units/L Troponin I (< 0.04) ng/mL Serum Total Protein (6.4-8.9) g/dL Albumin (3.5-5.7) g/dL Globulin (2.4-3.5) g/dL Albumin/Globulin Ratio (1.1-2.2) Lipase (11-82) Units/L Blood Type A POSITIVE Antibody Screen NEGATIVE Crossmatch See Detail - Radiology Data Radiology results reviewed: Yes I reviewed the patient's radiology results. Attestation Statement - Attestation Attestation: I examined this patient and my medical decision-making was reviewed with the Resident Physician. I agree with the documented findings, disposition and treatment plan as described except to the extent set forth below. Right IJ central line placed by Dr. Winston with ultrasound guidance under my direct supervision. Successful line placement with no complications.
[2018-04-09] MEDS ORDERED: OXYCODONE Oral CONC 10 MG/0.5 ML ORAL.SYG SL PRN (03:04)
--- NOTE | 2018-04-09 03:26 | Internal Med History&Physical ---
<Mona Romano - Last Filed: 04/09/18 03:58> Date of Encounter: 04/09/18 Time of Encounter: 02:50 Internal Medicine - H&P: HPI Chief complaint: Abdominal pain Admitted From: Emergency Dept Plans for Post Hospital Care: Home History of present illness: Mr. Ortiz is a 72 year old male PMH HTN, HLD, and ankylosing spondylitis presented to [facility] complaining of abdominal pain. He reported that it began around 2 PM this evening and continue to get worse. His daughter whom is the nurse gave him Zantac and indomethacin which helped to improve the pain slightly. They later called his family doctor Dr. Reid whom told him to stop taking indomethacin. He also had fever, chills, lightheadedness, shortness of breath. He denied nausea, vomiting, melena, hematechezia. He reported having multiple bowel movements today which were slightly darker but not black or bright red blood. His daughter later took his blood pressure and noted that it was 80s systolic and decided to call EMS. The patient reported that he has been taking NSAIDs for about 30 years and attributes that to his chronic abdominal pain. He had a colonoscopy years ago and reportedly was normal and did not have ulcers. Of note the patient had a right hip replacement 04/04/2018, the patient reported no complications and does not have hip pain. In the ED he was hypotensive BP 71/49 and tachycardic with heart rate 136. Initial chest/abdominal x-ray demonstrated sub diaphragmatic free air concerning for bowel perforation. Abdominal CT demonstrated peritoneum, ascites , ileus, sigmoid diverticulosis, cholelithiasis, ankylosing spondylitis. In the ED Dr. Escamilla of general surgery was consulted and instructed that a NG tube be placed in the patient be admitted to the ICU. The patient was given Flagyl and unasyn. Due to hypertension a right IJ central line was placed. He was then admitted to the ICU. He is a full code. Past Med Surg Social Fam HX - Past Medical History Medical history: arthritis, hyperlipidemia, hypertension Psychiatric history: no psych history - Past Surgical History Surgical History: hip replacement (Right), other - Social History Smoking Status: Former smoker Smokeless Tobacco Status: No Alcohol use: none Drug use: none - Family History Father Hx Family Cardiac Disorders: Yes Hx Family Endocrine Disorder: Yes (DM) Internal Medicine - H&P: Meds Aspirin Enteric Coated [Aspirin EC] 325 mg PO BID #20 tablet. 04/03/18 [Rx] OxyCODONE Immed Rel [Roxicodone 5 MG] 5 mg PO Q6HR PRN 7 Days #28 tablet [Rx] Atorvastatin [Lipitor] 40 mg PO DAILY 04/04/18 [History] Indomethacin 75 mg PO BID 04/04/18 [History] Indomethacin [Indocin] 25 mg PO BID PRN 04/04/18 [History] Latanoprost [Xalatan] 1 drop OP HS 04/04/18 [History] Lisinopril [Zestril] 20 mg PO DAILY 04/04/18 [History] Multivit-Min/FA/Lycopen/Lutein [Centrum Silver Men Tablet] 1 tab PO DAILY [History] Zolpidem [Ambien] 10 mg PO DAILY 04/04/18 [History] hydroCHLOROthiazide [Hydrochlorothiazide] 12.5 mg PO DAILY 04/04/18 [History] 3 Allergy/AdvReac Type Severity Reaction Status Date / Time No Known Allergies Allergy Verified 04/04/18 06:23 All Systems PM: A 10-system review of systems was performed and is negative for pertinent findings except as documented above in the HPI. - Constitutional Constitutional: chills, fever(s), no falls - EENT Eyes: no change in vision - Cardiovascular Cardiovascular ROS IM: diaphoresis, lightheadedness, no chest pain, no palpitations, no syncope - Respiratory Respiratory: dyspnea, no cough, no wheezing - Gastrointestinal Gastrointestinal: abdominal pain, no constipation, no diarrhea, no hematemesis, no hematochezia, no melena, no nausea, no vomiting - Musculoskeletal Musculoskeletal ROS IM: arthralgias, back pain - Neurological Neurological ROS: no frequent falls - Constitutional Vitals: Temp Pulse Resp BP Pulse Ox 98.0 F 110 20 91/58 93 04/08/18 20:13 04/09/18 02:00 04/09/18 02:00 04/09/18 02:00 04/09/18 02:00 General appearance: Present: A&O X 3, pleasant, no acute distress, answers questions appropriately - Head Head exam: Present: atraumatic, normal inspection - Respiratory Respiratory exam: Present: CTAB. Absent: rhonchi, wheezes - Cardiovascular Cardiovascular exam: Present: RRR, +S1, +S2. Absent: systolic murmur - GI/Abdominal GI/Abdominal exam: Present: diminished bowel sounds, distended, firm, tenderness. Absent: guarding - Extremities Exam Extremities exam: Present: pedal edema, radial pulses palpable and symmetrical. Absent: calf tenderness - Neurological Exam Neurological exam: Present: alert, oriented X3 - Skin Skin exam: Present: dry, intact Internal Med - H&P Results - Labs CBC & Chem 7: 04/09/18 03:18 04/09/18 03:18 - Assessment and plan (1) Perforated abdominal viscus Current Visit: Yes Status: Acute Assessment and plan: Peritoneum demonstrated by abdominal CT. Dr. Escamilla of general surgery contacted by ED. NG tube and central line in place. At admission Afebrile, tachycardic 136, BP 71/49. Patient is received Flagyl and unasyn in ED. Perforation is likely secondary to chronic NSAID use. He has had chronic abdominal pain that he attributes to NSAIDs that he takes for his ankylosing spondylitis. Tachycardic 99, BP 91/52 WBC WNL abdominal exam is distended, diffusely tender, diminished bowel sounds patient reports pain is well-controlled -IV Zosyn -4L IVF has been given, and has not required pressers thus far -general surgery following -NPO, NGT in place -oxycodone sublingual PRN pain -IV Protonix -blood culture pending -holding NSAIDs (2) JOHNSON (acute kidney injury) Current Visit: Yes Status: Acute Assessment and plan: Acute kidney injury likely secondary to a combination of factors including dehydration, renee inhibitor, chronic NSAID use. Creatinine 2.18 (1.59) worsening -avoid nephrotoxic agents -continue IVF -monitor serum creatinine (3) Ankylosing spondylitis Current Visit: Yes Status: Acute Assessment and plan: History of known ankylosing spondylitis taking indomethacin on a regular basis for about 30 years -holding NSAIDs Qualifiers: Qualified Code(s): M45.9 - Ankylosing spondylitis of unspecified sites in spine (4) HTN (hypertension) Current Visit: No Status: Chronic Assessment and plan: History of hypertension controlled with hydrochlorothiazide and lisinopril holding BP meds due to hypotension Qualifiers: Hypertension type: essential hypertension Qualified Code(s): I10 - Essential (primary) hypertension (5) Hyperlipemia Current Visit: Yes Status: Acute Assessment and plan: History of hyperlipidemia controlled with atorvastatin and aspirin holding home meds Qualifiers: Qualified Code(s): E78.5 - Hyperlipidemia, unspecified (6) DVT prophylaxis Current Visit: Yes Status: Acute Assessment and plan: EPCD - Time Spent With Patient Total time spent is greater than 50% in coordination of care (as documented) at patient's floor/unit and/or counseling patient: <Sherri Mckeon - Last Filed: 04/09/18 06:00> Date of Encounter: 04/09/18 Internal Medicine - H&P: HPI History of present illness: Mr. Ortiz is a 72 year old male All Systems PM: A 10-system review of systems was performed and is negative for pertinent findings except as documented above in the HPI. - Constitutional Vitals: Temp Pulse Resp BP Pulse Ox 97.9 F 97 26 86/56 91 04/09/18 03:00 04/09/18 05:00 04/09/18 05:00 04/09/18 05:00 04/09/18 05:00 Internal Med - H&P Results - Labs CBC & Chem 7: 04/09/18 03:18 04/09/18 03:18 Labs: Short CBC 04/09/18 Range/Units 03:18 WBC 5.2 (4.3-11.1) K/mcL Hgb 10.9 L D (12.9-16.9) g/dL Hct 32.3 L (37.5-50.1) % Plt Count 303 (140-400) K/mcL Neutrophils # 4.4 (1.6-8.9) K/mcL BMP 04/09/18 03:18 Sodium 132 L Potassium 4.8 Chloride 101 Carbon Dioxide 23 BUN 42 H Creatinine 2.18 H Glucose 146 H Calcium 9.8 - Impressions ITS Impressions Chest X-Ray 04/09/18 01:55 IMPRESSION: Uncomplicated line placement. D/ / Marlo Hager MD / Marlo Hager MD Interpreting Provider: Marlo Hager MD - Attending Attestation I have seen and examined this patient independently. I have discussed with resident physician Dr Romano regarding the management plan. Agree with the documentation. - Time Spent With Patient Total time spent is greater than 50% in coordination of care (as documented) at patient's floor/unit and/or counseling patient:
[2018-04-09 03:30] LABS: Hematocrit 32.3 % (37.5-50.1); Lymphocytes # 0.3 K/mcL (0.6-4.6); Mean Corpuscular HGB Conc 33.7 g/dL (31.6-35.5); Mean Corpuscular Hemoglobin 33.2 pg (28.0-33.3); Mean Corpuscular Volume 98.5 fL (83.0-100.0); Mean Platelet Volume 8.5 fL (9.4-12.4); Monocytes # 0.3 K/mcL (0.0-1.3); Platelet Count 303 K/mcL (140-400); Red Blood Count 3.28 M/mcL (4.19-5.50); Red Cell Distribution Width 13.3 % (11.5-14.5)
[2018-04-09] MEDS ORDERED: Ringers Solution, Lactated 1,000 ML IVC ONE ×3 (03:35→05:28)
[2018-04-09 03:46] LABS: Calcium 9.8 mg/dL (8.6-10.3); Potassium 4.8 mEq/L (3.5-5.1)
[2018-04-09] MEDS ORDERED: Naloxone 0.4 MG/ML INJ IVP PRN (03:56)
[2018-04-09 03:57] LABS: Hemoglobin 10.9 g/dL (12.9-16.9)
[2018-04-09] MEDS ORDERED: Ringers Solution, Lactated 1,000 ML ONE (04:44)
[2018-04-09 04:59] LABS: Neutrophils # 4.4 K/mcL (1.6-8.9); Platelet Estimate Normal (Normal)
[2018-04-09] MEDS ORDERED: 0.9 % Sodium Chloride 1,000 ML IVC ONE (05:41)
[2018-04-09] MEDS ORDERED: 0.9 % Sodium Chloride 1,000 ML ONE (05:54)
[2018-04-09] MEDS: Pantoprazole 40 MG VIAL IVP SCH ×2 (06:03→15:07)
--- NOTE | 2018-04-09 08:24 | General Surgery Consult Note ---
Date of Encounter: 04/09/18 Time of Encounter: 08:16 Assessment and Plan (1) Perforated duodenal ulcer Current Visit: Yes Status: Acute Plan for volume resuscitation with bowel rest and antibiotics. If the patient should develop increasing shortness of breath and hypoxia he may need a light diuretic as well. I have discussed with the patient the potential for surgery. However at this point I did not feel warranted. He is at risk for ongoing inflammatory changes with resultant need for ventilation and/or surgery. We will watch him closely. He will remain in the ICU at this point History of Present Illness Consult date: 04/09/18 Reason for consult: abdominal pain History of present illness: This is a 72 yo male with abdominal pain that presented to the ER. He was found to have free air on abdominal xray. The patient reports a history of Indocin use for the last 30 years. He underwent hip replacement surgery 5 days ago. Yesterday he developed a sudden onset of sharp epigastric abdominal pain that was 10/10. This was his presenting symptom. He currently reports feeling better since last night. Past Med Surg Social Fam HX - Past Medical History Medical history: arthritis, hyperlipidemia, hypertension Psychiatric history: no psych history - Past Surgical History Surgical History: herniorrhaphy, hip replacement, other (Shoulder surgery, hip replacement) - Social History Smoking Status: Never smoker Smokeless Tobacco Status: No Alcohol use: none Drug use: none - Family History Father Hx Family Cardiac Disorders: Yes Hx Family Endocrine Disorder: Yes (DM) Medications and Allergies Aspirin Enteric Coated [Aspirin EC] 325 mg PO BID #20 tablet. 04/03/18 [Rx] OxyCODONE Immed Rel [Roxicodone 5 MG] 5 mg PO Q6HR PRN 7 Days #28 tablet [Rx] Atorvastatin [Lipitor] 40 mg PO DAILY 04/04/18 [History] Indomethacin 75 mg PO BID 04/04/18 [History] Indomethacin [Indocin] 25 mg PO BID PRN 04/04/18 [History] Latanoprost [Xalatan] 1 drop OP HS 04/04/18 [History] Lisinopril [Zestril] 20 mg PO DAILY 04/04/18 [History] Multivit-Min/FA/Lycopen/Lutein [Centrum Silver Men Tablet] 1 tab PO DAILY [History] Zolpidem [Ambien] 10 mg PO DAILY 04/04/18 [History] hydroCHLOROthiazide [Hydrochlorothiazide] 12.5 mg PO DAILY 04/04/18 [History] 3 Allergy/AdvReac Type Severity Reaction Status Date / Time No Known Allergies Allergy Verified 04/04/18 06:23 Review of Systems All systems PM: reviewed and no additional remarkable complaints except as stated All systems PM: The remainder of the systems were reviewed and are negative General Surgery Exam Initial Vital Signs Temp Pulse Resp BP Pulse Ox 98.0 F 136 20 71/49 91 04/08/18 20:13 04/08/18 20:13 04/08/18 20:13 04/08/18 20:13 04/08/18 20:13 - General physical appearance well developed, well nourished, no distress - Eyes PERRL - Neck no masses, trachea midline - Cardiovascular Cardiovascular exam: Present: tachycardia - Abdomen Abdomen general surgery: Present: soft, tender Abdominal Tenderness: Present: diffusely - Integumentary Integumentary general surgery: Present: warm and dry, no abnormal pigmentation - Neurologic Present: CN 2-12 grossly intact, normal sensation - Psychiatric Psychiatric general surgery: Present: A&Ox3, appropriate, speech is normal Exam Initial Vital Signs Temp Pulse Resp BP Pulse Ox 98.0 F 136 20 71/49 91 04/08/18 20:13 04/08/18 20:13 04/08/18 20:13 04/08/18 20:13 04/08/18 20:13 Results - Labs 04/09/18 03:18 04/09/18 03:18 Abnormal lab results RBC 3.28 M/mcL (4.19-5.50) L 04/09/18 03:18 Hgb 10.9 g/dL (12.9-16.9) L D 04/09/18 03:18 Hct 32.3 % (37.5-50.1) L 04/09/18 03:18 MPV 8.5 fL (9.4-12.4) L 04/09/18 03:18 Band Neutrophils % 10.0 % (0-4) H 04/09/18 03:18 Metamyelocytes % 4.0 % (0) H 04/09/18 03:18 Lymphocytes # 0.3 K/mcL (0.6-4.6) L 04/09/18 03:18 PT 12.3 Seconds (9.4-12.1) H 04/08/18 20:32 Sodium 132 mEq/L (136-145) L 04/09/18 03:18 BUN 42 mg/dL (8-23) H 04/09/18 03:18 Creatinine 2.18 mg/dL (0.70-1.30) H 04/09/18 03:18 Est GFR ( Amer) 36 (> 60) L 04/09/18 03:18 Est GFR (Non-Af Amer) 30 (> 60) L 04/09/18 03:18 Glucose 146 mg/dL (70-105) H 04/09/18 03:18 POC Glucose 132 mg/dL (70-99) H 04/09/18 02:36 Alkaline Phosphatase 110 Units/L (34-104) H 04/08/18 20:32 Troponin I 0.04 ng/mL (< 0.04) H* 04/08/18 20:32 Diabetes panel 04/09/18 Range/Units 03:18 Sodium 132 L (136-145) mEq/L Potassium 4.8 (3.5-5.1) mEq/L Chloride 101 (98-107) mEq/L Carbon Dioxide 23 (23-29) mEq/L BUN 42 H (8-23) mg/dL Creatinine 2.18 H (0.70-1.30) mg/dL Glucose 146 H (70-105) mg/dL Calcium 9.8 (8.6-10.3) mg/dL Calcium panel 04/09/18 Range/Units 03:18 Calcium 9.8 (8.6-10.3) mg/dL Pituitary panel 04/09/18 Range/Units 03:18 Sodium 132 L (136-145) mEq/L Potassium 4.8 (3.5-5.1) mEq/L Chloride 101 (98-107) mEq/L Carbon Dioxide 23 (23-29) mEq/L BUN 42 H (8-23) mg/dL Creatinine 2.18 H (0.70-1.30) mg/dL Glucose 146 H (70-105) mg/dL Calcium 9.8 (8.6-10.3) mg/dL Adrenal panel 04/09/18 Range/Units 03:18 Sodium 132 L (136-145) mEq/L Potassium 4.8 (3.5-5.1) mEq/L Chloride 101 (98-107) mEq/L Carbon Dioxide 23 (23-29) mEq/L BUN 42 H (8-23) mg/dL Creatinine 2.18 H (0.70-1.30) mg/dL Glucose 146 H (70-105) mg/dL Calcium 9.8 (8.6-10.3) mg/dL All other labs normal. Consult Discharge Plan - Plan Referrals: Jim Reid MD [Primary Care Provider] -
[2018-04-09] MEDS ORDERED: Furosemide 20 MG/2 ML VIAL IVP ONE (08:33)
[2018-04-09] MEDS ORDERED: 0.9 % Sodium Chloride 1,000 ML IVC SCH (08:45)
[2018-04-09] MEDS: Piperacillin/Tazobactam 3.375 GM in 0.9 % Sodium Chloride Mini Bag 100 ML IVPB SCH ×2 (08:50→15:07)
[2018-04-09] MEDS ORDERED: Pantoprazole 40 MG VIAL IVP SCH (09:00)
--- NOTE | 2018-04-09 10:24 | Event Note ---
Date of Encounter: 04/09/18 Time of Encounter: 10:20 seen and assessed. Pt being managed for perforated duodenal ulcer. Surgery following. No plan for surgical intervention. Pt is however hypoxic and requiring up to 6L of oxygen to keep vikram above 90%. recent hip surgery. Consult pulmonary for further management
[2018-04-09] MEDS ORDERED: Furosemide 40 MG/4 ML VIAL IVP ONE ×2 (10:48→18:00)
--- NOTE | 2018-04-09 10:51 | Pulmonology Consult Note ---
<Margot Hernandez M - Last Filed: 04/09/18 11:23> Date of Encounter: 04/09/18 Medications and Allergies Aspirin Enteric Coated [Aspirin EC] 325 mg PO BID #20 tablet. 04/03/18 [Rx] OxyCODONE Immed Rel [Roxicodone 5 MG] 5 mg PO Q6HR PRN 7 Days #28 tablet [Rx] Atorvastatin [Lipitor] 40 mg PO DAILY 04/04/18 [History] Indomethacin 75 mg PO BID 04/04/18 [History] Indomethacin [Indocin] 25 mg PO BID PRN 04/04/18 [History] Latanoprost [Xalatan] 1 drop OP HS 04/04/18 [History] Lisinopril [Zestril] 20 mg PO DAILY 04/04/18 [History] Multivit-Min/FA/Lycopen/Lutein [Centrum Silver Men Tablet] 1 tab PO DAILY [History] Zolpidem [Ambien] 10 mg PO DAILY 04/04/18 [History] hydroCHLOROthiazide [Hydrochlorothiazide] 12.5 mg PO DAILY 04/04/18 [History] 3 Allergy/AdvReac Type Severity Reaction Status Date / Time No Known Allergies Allergy Verified 04/09/18 11:11 All Systems: The remainder of the systems were reviewed and are negative Physical Examination Vital Signs: Vital Signs, Last 4 Hours Temp Pulse Resp BP Pulse Ox 04/09/18 10:00 93 23 93/53 91 04/09/18 09:00 93 22 91/51 92 04/09/18 08:00 101 24 95/65 90 04/09/18 07:53 97.7 F Results - Laboratory Findings CBC and BMP: 04/09/18 03:18 04/09/18 03:18 PT/INR, D-dimer PT 12.3 Seconds (9.4-12.1) H 04/08/18 20:32 Abnormal lab findings: Abnormal lab results RBC 3.28 M/mcL (4.19-5.50) L 04/09/18 03:18 Hgb 10.9 g/dL (12.9-16.9) L D 04/09/18 03:18 Hct 32.3 % (37.5-50.1) L 04/09/18 03:18 MPV 8.5 fL (9.4-12.4) L 04/09/18 03:18 Band Neutrophils % 10.0 % (0-4) H 04/09/18 03:18 Metamyelocytes % 4.0 % (0) H 04/09/18 03:18 Lymphocytes # 0.3 K/mcL (0.6-4.6) L 04/09/18 03:18 PT 12.3 Seconds (9.4-12.1) H 04/08/18 20:32 Sodium 132 mEq/L (136-145) L 04/09/18 03:18 BUN 42 mg/dL (8-23) H 04/09/18 03:18 Creatinine 2.18 mg/dL (0.70-1.30) H 04/09/18 03:18 Est GFR ( Amer) 36 (> 60) L 04/09/18 03:18 Est GFR (Non-Af Amer) 30 (> 60) L 04/09/18 03:18 Glucose 146 mg/dL (70-105) H 04/09/18 03:18 POC Glucose 132 mg/dL (70-99) H 04/09/18 02:36 Alkaline Phosphatase 110 Units/L (34-104) H 04/08/18 20:32 Troponin I 0.04 ng/mL (< 0.04) H* 04/08/18 20:32 - Clinical Findings Intake & Output: Intake & Output 04/08/18 04/09/18 04/09/18 23:59 07:59 15:59 Intake Total 2100 / 3200 Output Total 500 / 500 Balance 1600 / 2700 Weight 103.7 kg Consult Discharge Plan - Plan Referrals: Jim Reid MD [Primary Care Provider] - - Attending Attestation I examined this patient and my medical decision-making was reviewed with the Resident Physician. I agree with the documented findings, disposition and treatment plan as described except to the extent set forth below. Patient seen and examined. Labs, radiology, chart personally reviewed. Agree with resident's history and physical, assessment, plan with following comments: [employer]ENT: Patient follows commands, Pulmonary: Acceptable oxygenation and ventilation and they suspect his mild respiratory distress is multifactorial from fluid resuscitation and also pain and abdominal distention and it could be atelectasis. Chest x-ray was ordered and CVP measured around 12 and encourage incentive spirometry with pain control. Will diuresis patient since noninvasive ventilation is not a good option for the patient if his respiratory status worsened. Cardiovascular: Patient has history of borderline blood pressure. GI: Nutrition per dietary and GI prophylaxis per routine. Patient to remain nothing by mouth and discussed with Dr. Escamilla and decision regarding surgery will be deferred to him. Heme: DVT prophylaxis per routine ID: Continue antibiotics and plan to de-escalation. Empiric antibiotics and coverage for fungal cultures. Renal; urine out put and renal funtion reviewed Endorcine: blood glucose is monitored Lines: all lines checked and no evidence of infections Skin: skin care to prevent pressure ulcers per nursing routine care I am hoping his condition will improve since he is high risk that condition may deteriorate. Discussed with primary team and thank you for consultation. <Kash Ponce - Last Filed: 04/09/18 11:33> Date of Encounter: 04/09/18 Time of Encounter: 10:57 Assessment and Plan (1) Perforated abdominal viscus Current Visit: Yes Status: Acute Peritoneum demonstrated by abdominal CT. Etiology likely secondary to the patient's chronic NSAID use. Patient was requiring IV crystalloid. Dr. Escamilla of general surgery contacted by ED. NG tube and central line in place. At admission Afebrile, tachycardic 136, BP 71/49. Patient is received Flagyl and unasyn in ED. Perforation is likely secondary to chronic NSAID use. He has had chronic abdominal pain that he attributes to NSAIDs that he takes for his ankylosing spondylitis. Tachycardic 99, BP 91/52 WBC WNL abdominal exam is distended, diffusely tender, diminished bowel sounds patient reports pain is well-controlled PLAN -IV Zosyn -general surgery following-Will repeat CT on 04/11, Appreciate recs -NPO, NGT in place -oxycodone sublingual PRN pain, Fentanyl PRN -IV Protonix -blood culture pending -holding NSAIDs (2) Sepsis Current Visit: Yes Status: Acute Given the patient's tachycardia, tachypnea the patient does meet SIRS criteria with source likely intra-abdominal with perforated viscus. Patient responded to crystalloid. Plan as above, blood cultures, appropriate antibiotics. Patient already had aggressive fluid resuscitation. Qualifiers: Sepsis type: sepsis due to unspecified organism Qualified Code(s): A41.9 - Sepsis, unspecified organism (3) JOHNSON (acute kidney injury) Current Visit: Yes Status: Acute Acute kidney injury likely secondary to a combination of factors including dehydration, renee inhibitor, chronic NSAID use. Creatinine 2.18 (1.59) worsening. Currently the patient is having increased work of breathing likely related to fluid overload. Patient will require increasing doses of Lasix and will need to monitor the patient's kidney function closely. Patient's continued to produce urine. -avoid nephrotoxic agents -monitor serum creatinine -I/Os (4) Ankylosing spondylitis Current Visit: Yes Status: Acute History of known ankylosing spondylitis taking indomethacin on a regular basis for about 30 years -holding NSAIDs Qualifiers: Ankylosing spondylitis location: unspecified site of spine Qualified Code(s ): M45.9 - Ankylosing spondylitis of unspecified sites in spine (5) Hyperlipemia Current Visit: Yes Status: Acute History of hyperlipidemia controlled with atorvastatin and aspirin holding home meds Qualifiers: Hyperlipidemia type: unspecified Qualified Code(s): E78.5 - Hyperlipidemia , unspecified (6) Hypoxia Current Visit: Yes Status: Acute Patient is requiring 6 L nasal cannula. Hypoxia likely secondary to volume overload. Patient will be gradually diuresed with close monitoring of his kidney function. Patient is still mentating appropriately. No need for noninvasive positive pressure ventilation. CVP is 12 suggesting volume overload. -Supplemental oxygen as necessary -Lasix 40 mg IV -Incentive spirometry (7) HTN (hypertension) Current Visit: No Status: Chronic History of hypertension controlled with hydrochlorothiazide and lisinopril holding BP meds due to hypotension Qualifiers: Hypertension type: essential hypertension Qualified Code(s): I10 - Essential (primary) hypertension (8) Elevated troponin Current Visit: Yes Status: Acute Troponin elevated at 0.04 upon arrival to the ED. Patient denies any chest pain. No associated EKG changes. Patient currently denies any chest pain. Will repeat a troponin. (9) DVT prophylaxis Current Visit: Yes Status: Acute EPCD AND Heparin SQ. patient is high risk being postop for DVT. History of Present Illness Consult date: 04/09/18 Requesting physician: Brian Rosenthal Reason for consult: cough, hypoxemia Chief complaint: Cough, Abdominal pain History of present illness: 72-year-old male with hypertension, hyperlipidemia, ankylosing spondylolysis with extensive NSAID use presents for evaluation of abdominal pain to the [facility] emergency department. Patient reported abrupt onset of abdominal pain prior to arrival. Patient denied any nausea, vomiting, melena or hematochezia. Patient was having normal bowel movements that appeared to be more darker than usual. Patient course in the emergency department included hypotension and tachycardia. Patient had a chest x-ray which demonstrated free air in the abdomen concerning for bowel perforation. CT of the abdomen and pelvis showed ascites, ileus, diverticulosis. Patient was started on antibiotics. Case was discussed from the ER with surgery who recommended NG tube placement with decompression. Patient did have a central line placed in the ER. Patient received a total of 4 L of crystalloid as well as placed on maintenance. At the time of my evaluation the patient is requiring increasing oxygen requirement. Patient is on 6 L nasal cannula. Patient does appear hypervolemic. Patient's lactate was unremarkable. Patient denies any significant dyspnea. Patient does report a cough. Patient denies any history of recent smoking is a former smoker. No chest pain. Patient does have some abdominal pain. Past Med Surg Social Fam HX - Past Medical History Medical history: arthritis, hyperlipidemia, hypertension Psychiatric history: no psych history - Past Surgical History Surgical History: herniorrhaphy, hip replacement, other (Shoulder surgery, hip replacement) - Social History Smoking Status: Never smoker Smokeless Tobacco Status: No Alcohol use: none Drug use: none - Family History Father Hx Family Cardiac Disorders: Yes Hx Family Endocrine Disorder: Yes (DM) All Systems: The remainder of the systems were reviewed and are negative - Constitutional Constitutional: as per HPI - Cardiovascular Cardiovascular: as per HPI, no chest pain - Respiratory Respiratory: as per HPI, cough, dyspnea - Gastrointestinal Gastrointestinal: as per HPI, abdominal pain, no vomiting - Genitourinary Genitourinary: as per HPI - Musculoskeletal Musculoskeletal: joint pain - Integumentary Integumentary: as per HPI - Neurological Neurological: as per HPI Physical Examination Vital Signs: Vital Signs, Last 4 Hours Temp Pulse Resp BP Pulse Ox 04/09/18 10:00 93 23 93/53 91 04/09/18 09:00 93 22 91/51 92 04/09/18 08:00 101 24 95/65 90 04/09/18 07:53 97.7 F 04/09/18 07:00 97 26 101/63 91 General appearance: no acute distress Eyes: nonicteric ENT: oropharynx moist Neck: supple Effort: normal Inspection: normal Auscultation: bilateral: rales Cardiovascular: regular rate and rhythm Gastrointestinal: other (Distended and mildly tender with palpation.) Integumentary: normal Extremities: edema (1+ trace) Musculoskeletal: no deformities normal mental status, non-focal exam Results - Laboratory Findings CBC and BMP: 04/09/18 03:18 04/09/18 03:18 PT/INR, D-dimer PT 12.3 Seconds (9.4-12.1) H 04/08/18 20:32 Abnormal lab findings: Abnormal lab results RBC 3.28 M/mcL (4.19-5.50) L 04/09/18 03:18 Hgb 10.9 g/dL (12.9-16.9) L D 04/09/18 03:18 Hct 32.3 % (37.5-50.1) L 04/09/18 03:18 MPV 8.5 fL (9.4-12.4) L 04/09/18 03:18 Band Neutrophils % 10.0 % (0-4) H 04/09/18 03:18 Metamyelocytes % 4.0 % (0) H 04/09/18 03:18 Lymphocytes # 0.3 K/mcL (0.6-4.6) L 04/09/18 03:18 PT 12.3 Seconds (9.4-12.1) H 04/08/18 20:32 Sodium 132 mEq/L (136-145) L 04/09/18 03:18 BUN 42 mg/dL (8-23) H 04/09/18 03:18 Creatinine 2.18 mg/dL (0.70-1.30) H 04/09/18 03:18 Est GFR ( Amer) 36 (> 60) L 04/09/18 03:18 Est GFR (Non-Af Amer) 30 (> 60) L 04/09/18 03:18 Glucose 146 mg/dL (70-105) H 04/09/18 03:18 POC Glucose 132 mg/dL (70-99) H 04/09/18 02:36 Alkaline Phosphatase 110 Units/L (34-104) H 04/08/18 20:32 Troponin I 0.04 ng/mL (< 0.04) H* 04/08/18 20:32 - Diagnostic Findings Chest x-ray: report reviewed, image reviewed - Clinical Findings Intake & Output: Intake & Output 04/08/18 04/09/18 04/09/18 23:59 07:59 15:59 Intake Total 2100 / 3200 Output Total 500 / 500 Balance 1600 / 2700 Weight 103.7 kg
--- NOTE | 2018-04-09 11:15 | Orthopedics Progress Note ---
Date of Encounter: 04/09/18 Time of Encounter: 11:14 Subjective Interval history: Patient 5 days status post right total hip arthroplasty. Presented to the ED yesterday with sharp epigastric pain. Found to have a perforated duodenal ulcer. Admitted to the ICU for monitoring. AFV SS Hip dressing is clean dry and intact with no surrounding erythema. He is distally neurovascularly intact to motor and sensory exam. Status post right MARIANA with perforated duodenal ulcer. Continue management and monitoring as per ICU and general surgery services. Appreciate medical management. No plans for surgery per general surgery at this time Objective Vital signs: Vital Signs Temp Pulse Resp BP Pulse Ox 04/09/18 10:00 93 23 93/53 91 04/09/18 09:00 93 22 91/51 92 04/09/18 08:00 101 24 95/65 90 04/09/18 07:53 97.7 F 04/09/18 07:00 97 26 101/63 91 04/09/18 06:00 98 25 94/55 92 04/09/18 05:00 97 26 86/56 91 04/09/18 04:00 99 20 91/52 93 04/09/18 03:00 97.9 F 105 16 95/56 95 04/09/18 02:46 107 04/09/18 02:00 110 20 91/58 93 04/09/18 01:52 108 18 99/52 93 04/09/18 01:48 110 18 96/61 93 04/09/18 01:39 115 20 96/57 92 04/09/18 00:53 118 16 109/73 93 Intake and Output 04/08/18 04/09/18 04/09/18 23:59 07:59 15:59 Intake Total 2100 / 3200 Output Total 500 / 500 Balance 1600 / 2700 Intake: IV Fluids 2100 / 2100 Lactated Ringers 1,000 ML @ 2000 / 2000 3750 mls/hr IVC .Q16M ONE Rx#: [id number] Flagyl Premix 500 MG/100 ML 500 100 / 100 mg In 100 ml @ 100 mls/hr IVPB ONCE ONE Rx#:[id number] Oral 0 / 0 Output: Catheter 500 / 500 Other: Weight 103.7 kg Blood Glucose* 132 Patient Weight 04/09/18 23:59 Weight 103.7 kg - Labs CBC & BMP: 04/09/18 03:18 04/09/18 03:18 Labs: Abnormal lab results RBC 3.28 M/mcL (4.19-5.50) L 04/09/18 03:18 Hgb 10.9 g/dL (12.9-16.9) L D 04/09/18 03:18 Hct 32.3 % (37.5-50.1) L 04/09/18 03:18 MPV 8.5 fL (9.4-12.4) L 04/09/18 03:18 Band Neutrophils % 10.0 % (0-4) H 04/09/18 03:18 Metamyelocytes % 4.0 % (0) H 04/09/18 03:18 Lymphocytes # 0.3 K/mcL (0.6-4.6) L 04/09/18 03:18 PT 12.3 Seconds (9.4-12.1) H 04/08/18 20:32 Sodium 132 mEq/L (136-145) L 04/09/18 03:18 BUN 42 mg/dL (8-23) H 04/09/18 03:18 Creatinine 2.18 mg/dL (0.70-1.30) H 04/09/18 03:18 Est GFR ( Amer) 36 (> 60) L 04/09/18 03:18 Est GFR (Non-Af Amer) 30 (> 60) L 04/09/18 03:18 Glucose 146 mg/dL (70-105) H 04/09/18 03:18 POC Glucose 132 mg/dL (70-99) H 04/09/18 02:36 Alkaline Phosphatase 110 Units/L (34-104) H 04/08/18 20:32 Troponin I 0.04 ng/mL (< 0.04) H* 04/08/18 20:32 Consult Discharge Plan - Plan Referrals: Jim Reid MD [Primary Care Provider] -
[2018-04-09] MEDS: *HR* Heparin 5,000 UNIT/ML VIAL SQ SCH ×2 (12:37→20:29)
[2018-04-09] MEDS: Fluconazole 200 MG/100 ML 200 MG/100 ML BAG IVPB SCH (12:38)
[2018-04-09 13:25] LABS: Calcium 9.1 mg/dL (8.6-10.3)
[2018-04-09] MEDS: *HR* FentaNYL (PF) 100 MCG/2 ML VIAL IVP PRN (15:06)
[2018-04-09] MEDS: Latanoprost 2.5 ML BOTTLE RIGHT EYE SCH (20:28)
[2018-04-09] MEDS: Saliva Stimulant 100ml BOTTLE PO PRN (20:29)
[2018-04-10] MEDS: Piperacillin/Tazobactam 3.375 GM in 0.9 % Sodium Chloride Mini Bag 100 ML IVPB SCH ×4 (00:14→22:53)
[2018-04-10 03:39] LABS: Basophils # 0.1 K/mcL (0.0-0.2); Basophils % 0.4 %; Eosinophils % 0.1 %; Hematocrit 26.4 % (37.5-50.1); Hemoglobin 8.7 g/dL (12.9-16.9); Immature Granulocytes % 1.3 % (0-4); Immature Platelets 0.7 % (1.1-6.1); Lymphocytes # 0.5 K/mcL (0.6-4.6); Lymphocytes % 2.5 %; Mean Corpuscular Hemoglobin 32.5 pg (28.0-33.3); Mean Corpuscular Volume 98.5 fL (83.0-100.0); Mean Platelet Volume 8.5 fL (9.4-12.4); Monocytes # 0.7 K/mcL (0.0-1.3); Monocytes % 3.9 %; Neutrophils # 16.4 K/mcL (1.6-8.9); Platelet Count 252 K/mcL (140-400); Red Blood Count 2.68 M/mcL (4.19-5.50); Red Cell Distribution Width 13.5 % (11.5-14.5); Segmented Neutrophils % 91.8 %
[2018-04-10 04:13] LABS: Platelet Estimate Normal (Normal); Toxic Granulation Present (Not Present)
[2018-04-10] MEDS: Pantoprazole 40 MG VIAL IVP SCH ×2 (04:44→16:57)
[2018-04-10] MEDS: *HR* Heparin 5,000 UNIT/ML VIAL SQ SCH ×3 (04:44→20:56)
[2018-04-10] MEDS ORDERED: *HR* LORazepam 2 MG/ML VIAL IVP ONE (05:00)
[2018-04-10] MEDS: *HR* FentaNYL (PF) 100 MCG/2 ML VIAL IVP PRN ×3 (05:01→20:59)
[2018-04-10 05:07] LABS: Calcium 8.9 mg/dL (8.6-10.3); Potassium 5.4 mEq/L (3.5-5.1)
--- NOTE | 2018-04-10 06:58 | Pulmonology Progress Note ---
<Kash Ponce - Last Filed: 04/10/18 17:53> Date of Encounter: 04/10/18 Time of Encounter: 09:41 Assessment and Plan (1) Perforated abdominal viscus Current Visit: Yes Status: Acute Pneumoperitoneum demonstrated by abdominal CT. Etiology likely secondary to the patient's chronic NSAID use. Patient was requiring IV crystalloid. Dr. Escamilla of general surgery contacted by ED. NG tube and central line in place. At admission Afebrile, tachycardic 136, BP 71/49. Patient is received Flagyl and unasyn in ED. Perforation is likely secondary to chronic NSAID use. He has had chronic abdominal pain that he attributes to NSAIDs that he takes for his ankylosing spondylitis. Tachycardic 99, BP 91/52 WBC WNL abdominal exam is distended, diffusely tender, diminished bowel sounds patient reports pain is well-controlled PLAN -IV Zosyn, fluconazole, will add vancomycin coverage for elevated white count -general surgery following-Will repeat CT on 04/12, Appreciate recs, managing conservatively per surgery at this point. -NPO, NGT in place management per surgery -oxycodone sublingual PRN pain, Fentanyl PRN -IV Protonix -blood culture pending preliminary no growth -holding NSAIDs (2) Sepsis Current Visit: Yes Status: Acute Given the patient's tachycardia, tachypnea the patient does meet SIRS criteria with source likely intra-abdominal with perforated viscus. Patient responded to crystalloid. Plan as above, blood cultures, appropriate antibiotics. Patient already had aggressive fluid resuscitation. Fluid was held yesterday, will give a single 500 mL bolus of crystalloid as note how the patient responds. Patient has not required vasopressors. Patient did have a rise in his white count, will add gram-positive coverage. Pharmacy to dose Vanc. Qualifiers: Sepsis type: sepsis due to unspecified organism Qualified Code(s): A41.9 - Sepsis, unspecified organism (3) JOHNSON (acute kidney injury) Current Visit: Yes Status: Acute Acute kidney injury likely secondary to a combination of factors including dehydration, renee inhibitor, chronic NSAID use. Creatinine 2.19, (2.31, 1.59). Patient likely has baseline chronic kidney disease from his chronic NSAID use. Fluids were held yesterday as his concerns of fluid overload. Patient's lungs are clear but diminished likely related to lung atelectasis and splinting, will give one bolus of crystalloid and see how the patient responds. If no significant response the patient possibly has an element of ATN. Patient's continued to produce urine. Patient's fractional excretion of urea shows prerenal. Patient did tolerate fluid bolus. Patient's continued to produce urine. Given the patient's respiratory status patient likely may improve with fluids. -avoid nephrotoxic agents -monitor serum creatinine -I/Os -urine NA -urine creatinine -urine urea (4) Ankylosing spondylitis Current Visit: Yes Status: Acute History of known ankylosing spondylitis taking indomethacin on a regular basis for about 30 years -holding NSAIDs Qualifiers: Ankylosing spondylitis location: unspecified site of spine Qualified Code(s ): M45.9 - Ankylosing spondylitis of unspecified sites in spine (5) Hyperlipemia Current Visit: Yes Status: Acute History of hyperlipidemia controlled with atorvastatin and aspirin holding home meds Qualifiers: Hyperlipidemia type: unspecified Qualified Code(s): E78.5 - Hyperlipidemia , unspecified (6) Hypoxia Current Visit: Yes Status: Acute Patient is requiring some supplemental oxygen. Initially believed related to aggressive fluid resuscitation and overload. Patient's fluids were held yesterday. Patient likely has an element of lung splinting given perforated viscus. Patient does have appropriate pain control. If the patient respiratory status worsens will get a CT of the chest. If the CT of the chest does not show a significant cause of the hypoxia pulmonary embolism would likely need to be ruled out. Patient is on prophylactic heparin. Plan -incentive spirometry -increase activity out of bed -echo pending -if respiratory status worsens, obtain CT of the chest. (7) HTN (hypertension) Current Visit: No Status: Chronic History of hypertension controlled with hydrochlorothiazide and lisinopril holding BP meds due to hypotension Qualifiers: Hypertension type: essential hypertension Qualified Code(s): I10 - Essential (primary) hypertension (8) Elevated troponin Current Visit: Yes Status: Acute Troponin elevated at 0.04, 0.4, 0.29. Patient denies any chest pain. No associated EKG changes. Likely demand ischemia from patient's sepsis. Echo pending. (9) Leukocytosis Current Visit: Yes Status: Acute Patient's white count increased to 17.9. No fevers overnight. No pressor requirements. Given the increase in WBCs, will repeat a CBC this evening. Will add gram-positive coverage given the patient's clinical picture. At this point the patient's high risk for pneumonia. Qualifiers: Leukocytosis type: unspecified Qualified Code(s): D72.829 - Elevated white blood cell count, unspecified (10) DVT prophylaxis Current Visit: Yes Status: Acute EPCD, subcutaneous heparin (11) Anemia Current Visit: No Status: Chronic Hemoglobin 8.7. A drop from 10.9. No obvious signs of bleeding. Will repeat CBC this evening. Transfusion goal hemoglobin greater than 7. Qualifiers: Anemia type: unspecified type Qualified Code(s): D64.9 - Anemia, unspecified Subjective Principal diagnosis: Perforated abdominal viscus, hypoxemia Interval history: Patient seen and examined this morning. Patient states that he slept well. Patient notes his abdomen is distended but states that his pain is relatively well controlled. Patient wishes to get out of bed. Patient also wishes to have ice chips. Patient denies any chest pain. Patient reports a nonproductive cough. Reports that he can only get to 750cc on his incentive spirometry. No events overnight. Objective PUL Vital signs: Last Vital Signs Temp 98.4 F 04/10/18 03:00 Pulse 93 04/10/18 06:00 Resp 23 04/10/18 06:00 BP 100/73 04/10/18 06:00 Pulse Ox 91 04/10/18 06:00 General appearance: no acute distress, asleep Eyes: nonicteric ENT: oropharynx dry Neck: supple Effort: normal Auscultation: bilateral: clear, diminished breath sounds Cardiovascular: regular rate and rhythm Gastrointestinal: hypoactive bowel sounds, tender (Diffusely tender), other ( Distended) Integumentary: normal Extremities: no cyanosis Musculoskeletal: no deformities normal mental status, non-focal exam Results - Laboratory Findings CBC and BMP: 04/10/18 17:05 04/10/18 03:27 PT/INR, D-dimer PT 12.3 Seconds (9.4-12.1) H 04/08/18 20:32 Abnormal lab findings: Abnormal lab results WBC 17.9 K/mcL (4.3-11.1) H D 04/10/18 03:27 RBC 2.68 M/mcL (4.19-5.50) L 04/10/18 03:27 Hgb 8.7 g/dL (12.9-16.9) L D 04/10/18 03:27 Hct 26.4 % (37.5-50.1) L 04/10/18 03:27 MPV 8.5 fL (9.4-12.4) L 04/10/18 03:27 Band Neutrophils % 10.0 % (0-4) H 04/09/18 03:18 Metamyelocytes % 4.0 % (0) H 04/09/18 03:18 Neutrophils # 16.4 K/mcL (1.6-8.9) H 04/10/18 03:27 Lymphocytes # 0.5 K/mcL (0.6-4.6) L 04/10/18 03:27 Toxic Granulation Present (Not Present) A 04/10/18 03:27 Immature Plt Fraction 0.7 % (1.1-6.1) L 04/10/18 03:27 PT 12.3 Seconds (9.4-12.1) H 04/08/18 20:32 Potassium 5.4 mEq/L (3.5-5.1) H 04/10/18 03:27 Chloride 108 mEq/L (98-107) H 04/10/18 03:27 BUN 57 mg/dL (8-23) H 04/10/18 03:27 Creatinine 2.19 mg/dL (0.70-1.30) H 04/10/18 03:27 Est GFR ( Amer) 36 (> 60) L 04/10/18 03:27 Est GFR (Non-Af Amer) 30 (> 60) L 04/10/18 03:27 Calculated Osmolality 302 (280-300) H 04/10/18 03:27 Alkaline Phosphatase 110 Units/L (34-104) H 04/08/18 20:32 Troponin I 0.29 ng/mL (< 0.04) H* 04/09/18 18:00 B-Natriuretic Peptide 328 pg/mL (Less than 100) H 04/09/18 12:32 - Microbiology Findings Microbiology Findings: Microbiology, Last 48 Hours 04/09/18 03:18 Blood Culture - Preliminary Arterial Line No growth. 04/09/18 03:18 Blood Culture - Preliminary Arterial Line No growth. - Clinical Findings Intake & Output: Intake & Output 04/09/18 04/09/18 04/10/18 15:59 23:59 07:59 Intake Total 200 / 200 100 / 100 100 / 100 Output Total 50 / 50 520 / 520 160 / 160 Balance 150 / 150 -420 / -420 -60 / -60 Weight 106 kg Consult Discharge Plan - Plan Referrals: Jim Reid MD [Primary Care Provider] - <Nick Bedoya - Last Filed: 04/10/18 22:52> Date of Encounter: 04/10/18 Objective PUL Vital signs: Last Vital Signs Temp 97.5 F L 04/10/18 18:47 Pulse 101 04/10/18 22:00 Resp 16 04/10/18 22:00 BP 139/79 04/10/18 22:00 Pulse Ox 94 04/10/18 22:00 Results - Laboratory Findings CBC and BMP: 04/10/18 17:05 04/10/18 03:27 PT/INR, D-dimer PT 12.3 Seconds (9.4-12.1) H 04/08/18 20:32 Abnormal lab findings: Abnormal lab results WBC 18.4 K/mcL (4.3-11.1) H 04/10/18 17:05 RBC 2.72 M/mcL (4.19-5.50) L 04/10/18 17:05 Hgb 9.1 g/dL (12.9-16.9) L 04/10/18 17:05 Hct 26.9 % (37.5-50.1) L 04/10/18 17:05 MCH 33.5 pg (28.0-33.3) H 04/10/18 17:05 MPV 8.3 fL (9.4-12.4) L 04/10/18 17:05 Band Neutrophils % 10.0 % (0-4) H 04/09/18 03:18 Metamyelocytes % 4.0 % (0) H 04/09/18 03:18 Neutrophils # 16.8 K/mcL (1.6-8.9) H 04/10/18 17:05 Lymphocytes # 0.4 K/mcL (0.6-4.6) L 04/10/18 17:05 Toxic Granulation Present (Not Present) A 04/10/18 17:05 Immature Plt Fraction 0.7 % (1.1-6.1) L 04/10/18 03:27 PT 12.3 Seconds (9.4-12.1) H 04/08/18 20:32 Potassium 5.4 mEq/L (3.5-5.1) H 04/10/18 03:27 Chloride 108 mEq/L (98-107) H 04/10/18 03:27 BUN 57 mg/dL (8-23) H 04/10/18 03:27 Creatinine 2.19 mg/dL (0.70-1.30) H 04/10/18 03:27 Est GFR ( Amer) 36 (> 60) L 04/10/18 03:27 Est GFR (Non-Af Amer) 30 (> 60) L 04/10/18 03:27 Calculated Osmolality 302 (280-300) H 04/10/18 03:27 Alkaline Phosphatase 110 Units/L (34-104) H 04/08/18 20:32 Troponin I 0.29 ng/mL (< 0.04) H* 04/09/18 18:00 B-Natriuretic Peptide 328 pg/mL (Less than 100) H 04/09/18 12:32 - Microbiology Findings Microbiology Findings: Microbiology, Last 48 Hours 04/09/18 03:18 Blood Culture - Preliminary Arterial Line No growth. 04/09/18 03:18 Blood Culture - Preliminary Arterial Line No growth. - Clinical Findings Intake & Output: Intake & Output 04/10/18 04/10/18 04/10/18 07:59 15:59 23:59 Intake Total 100 / 100 700 / 700 225 / 225 Output Total 160 / 160 470 / 470 400 / 400 Balance -60 / -60 230 / 230 -175 / -175 - Attending Attestation I saw and evaluated this patient and my medical decision-making was reviewed with the Resident Physician. I agree with the documented findings, disposition and treatment plan as described except to the extent set forth below. We independently had [id number] contact with the patient Patient seen and examined at bedside Labs, radiology, chart personally reviewed. Management was reviewed during multidisciplinary critical care rounds. 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 To continue O2 supplementation Cards: No acute issues FEN-GI:NPO Renal: Labs reviewed ID: Patient had a jump in WBC will oder MRSA coverage . Heme/Onc: DVT prophylaxis Endo: Glucose Monitored Integ/MSK: Skin Care per routine ICU Nursing Protocol to prevent ulcers. Lines: All lines examined without evidence of infection : Dispo: Critically ill CODE:
[2018-04-10] MEDS: Fluconazole 200 MG/100 ML 200 MG/100 ML BAG IVPB SCH (07:52)
[2018-04-10] MEDS: Saliva Stimulant 100ml BOTTLE PO PRN ×2 (08:56→20:56)
[2018-04-10] MEDS ORDERED: 0.9 % Sodium Chloride 500 ML IVC ONE (09:28)
--- NOTE | 2018-04-10 11:19 | General Surgery Progress Note ---
Date of Encounter: 04/10/18 Time of Encounter: 11:16 - Assessment and Plan (1) Perforated duodenal ulcer Current Visit: Yes Status: Acute Plan for volume resuscitation with bowel rest and antibiotics. Plan for UGI on Wednesday. If he continues to improve, then plan transfer to step down tomorrow. I have discussed with the patient the potential for surgery. However at this point I did not feel warranted. Subjective Patient reports: flatus, other (He is doing much better, still with some vague pain in the midabdomen.) Objective Vital Signs - Last 8 Hours Temp Pulse Resp BP Pulse Ox 04/10/18 11:00 101 20 128/76 92 04/10/18 10:00 90 18 121/65 93 04/10/18 09:00 93 11 118/71 92 04/10/18 08:00 98.1 F 91 14 106/64 93 04/10/18 07:00 92 19 108/57 91 04/10/18 06:00 93 23 100/73 91 04/10/18 05:21 109 26 132/86 90 04/10/18 04:00 95 23 108/66 91 Intake and Output 04/09/18 04/10/18 04/10/18 23:59 07:59 15:59 Intake Total 100 / 100 100 / 100 600 / 600 Output Total 520 / 520 160 / 160 200 / 200 Balance -420 / -420 -60 / -60 400 / 400 Intake: IV Fluids 100 / 100 100 / 100 600 / 600 Diflucan Premix 200 MG/100 ML 100 / 100 200 mg In 100 ml @ 100 mls/hr IVPB DAILY [facility] Rx#:[id number] Zosyn 3.375 GM In 0.9 % Sodium 100 / 100 100 / 100 Chloride (Mini-Bag +) 100 ML @ 25 mls/hr IVPB Q8HR [facility] Rx#: [id number] Vancocin 1,750 MG In 0.9 % 500 / 500 Sodium Chloride 500 ML @ 334. 014 mls/hr IVPB ONCE ONE Rx#: [id number] Output: Catheter 400 / 400 150 / 150 200 / 200 Gastric Drainage 120 / 120 10 / 10 Other: Weight 106 kg Blood Glucose* 95 - General physical appearance well developed, no distress - Eyes PERRL - ENT normal pinna, normal nares - Respiratory normal expansion, normal respiratory effort - Cardiovascular Cardiovascular exam: Present: RRR - Abdomen Abdomen: Present: soft, non tender - Integumentary no rash - Neurologic CN 2-12 grossly intact, normal sensation - Psychiatric oriented to time, oriented to person, memory intact - Labs 04/10/18 03:27 04/10/18 03:27 Diabetes panel 04/09/18 04/10/18 Range/Units 12:00 03:27 Sodium 135 L 138 (136-145) mEq/L Potassium 5.0 5.4 H (3.5-5.1) mEq/L Chloride 105 108 H (98-107) mEq/L Carbon Dioxide 25 25 (23-29) mEq/L BUN 46 H 57 H (8-23) mg/dL Creatinine 2.31 H 2.19 H (0.70-1.30) mg/dL Glucose 102 93 (70-105) mg/dL Calcium 9.1 8.9 (8.6-10.3) mg/dL Calcium panel 04/09/18 04/10/18 Range/Units 12:00 03:27 Calcium 9.1 8.9 (8.6-10.3) mg/dL Pituitary panel 04/09/18 04/10/18 Range/Units 12:00 03:27 Sodium 135 L 138 (136-145) mEq/L Potassium 5.0 5.4 H (3.5-5.1) mEq/L Chloride 105 108 H (98-107) mEq/L Carbon Dioxide 25 25 (23-29) mEq/L BUN 46 H 57 H (8-23) mg/dL Creatinine 2.31 H 2.19 H (0.70-1.30) mg/dL Glucose 102 93 (70-105) mg/dL Calcium 9.1 8.9 (8.6-10.3) mg/dL Adrenal panel 04/09/18 04/10/18 Range/Units 12:00 03:27 Sodium 135 L 138 (136-145) mEq/L Potassium 5.0 5.4 H (3.5-5.1) mEq/L Chloride 105 108 H (98-107) mEq/L Carbon Dioxide 25 25 (23-29) mEq/L BUN 46 H 57 H (8-23) mg/dL Creatinine 2.31 H 2.19 H (0.70-1.30) mg/dL Glucose 102 93 (70-105) mg/dL Calcium 9.1 8.9 (8.6-10.3) mg/dL - Imaging CT scan - abdomen: image reviewed CT scan - pelvis: image reviewed Consult Discharge Plan - Plan Referrals: Jim Reid MD [Primary Care Provider] -
[2018-04-10 12:31] LABS: Sodium, Urine 25.1 mEq/L
[2018-04-10] MEDS ORDERED: 0.9 % Sodium Chloride 1,000 ML IVC SCH (12:45)
[2018-04-10] MEDS: 0.9 % Sodium Chloride 1,000 ML IVC SCH (16:58)
[2018-04-10 17:13] LABS: Basophils % 0.2 %; Eosinophils % 0.2 %; Hematocrit 26.9 % (37.5-50.1); Immature Granulocytes % 3.1 % (0-4); Lymphocytes # 0.4 K/mcL (0.6-4.6); Mean Corpuscular HGB Conc 33.8 g/dL (31.6-35.5); Mean Corpuscular Hemoglobin 33.5 pg (28.0-33.3); Mean Corpuscular Volume 98.9 fL (83.0-100.0); Mean Platelet Volume 8.3 fL (9.4-12.4); Monocytes # 0.6 K/mcL (0.0-1.3); Monocytes % 3.2 %; Neutrophils # 16.8 K/mcL (1.6-8.9); Platelet Count 195 K/mcL (140-400); Red Blood Count 2.72 M/mcL (4.19-5.50); Red Cell Distribution Width 13.6 % (11.5-14.5); Segmented Neutrophils % 91.3 %
[2018-04-10 17:18] LABS: Hemoglobin 9.1 g/dL (12.9-16.9)
[2018-04-10 17:34] LABS: Toxic Granulation Present (Not Present)
[2018-04-10] MEDS: Latanoprost 2.5 ML BOTTLE RIGHT EYE SCH (20:56)
[2018-04-11] MEDS: 0.9 % Sodium Chloride 1,000 ML IVC SCH ×2 (03:26→13:50)
[2018-04-11] MEDS: Pantoprazole 40 MG VIAL IVP SCH ×2 (03:26→15:20)
[2018-04-11 03:52] LABS: Hematocrit 25.5 % (37.5-50.1); Hemoglobin 8.6 g/dL (12.9-16.9); Mean Corpuscular HGB Conc 33.7 g/dL (31.6-35.5); Mean Corpuscular Hemoglobin 33.1 pg (28.0-33.3); Mean Corpuscular Volume 98.1 fL (83.0-100.0); Mean Platelet Volume 8.5 fL (9.4-12.4); Platelet Count 200 K/mcL (140-400); Red Cell Distribution Width 13.5 % (11.5-14.5)
[2018-04-11 04:03] LABS: Calcium 9.4 mg/dL (8.6-10.3); Magnesium 2.9 mg/dL (1.6-2.6); Phosphorous 3.7 mg/dL (2.7-4.5); Potassium 4.3 mEq/L (3.5-5.1)
[2018-04-11 04:21] LABS: Eosinophils # 0.7 K/mcL (0.0-0.6); Neutrophils # 14.6 K/mcL (1.6-8.9); Platelet Estimate Normal (Normal)
[2018-04-11] MEDS: *HR* Heparin 5,000 UNIT/ML VIAL SQ SCH ×3 (05:57→22:21)
[2018-04-11] MEDS: Piperacillin/Tazobactam 3.375 GM in 0.9 % Sodium Chloride Mini Bag 100 ML IVPB SCH ×2 (07:04→15:21)
[2018-04-11] MEDS: Fluconazole 200 MG/100 ML 200 MG/100 ML BAG IVPB SCH (07:40)
[2018-04-11] MEDS ORDERED: Aminoglycoside Consult 1 EACH MC ONE (08:20)
--- NOTE | 2018-04-11 09:45 | Pulmonology Progress Note ---
<Hiram Vazquez W - Last Filed: 04/11/18 10:52> Date of Encounter: 04/11/18 Objective PUL Vital signs: Last Vital Signs Temp 98.5 F 04/11/18 04:00 Pulse 98 04/11/18 09:00 Resp 18 04/11/18 09:00 BP 135/85 04/11/18 09:00 Pulse Ox 95 04/11/18 09:00 Results - Laboratory Findings CBC and BMP: 04/11/18 03:32 04/11/18 03:32 PT/INR, D-dimer PT 12.3 Seconds (9.4-12.1) H 04/08/18 20:32 Abnormal lab findings: Abnormal lab results WBC 17.4 K/mcL (4.3-11.1) H 04/11/18 03:32 RBC 2.60 M/mcL (4.19-5.50) L 04/11/18 03:32 Hgb 8.6 g/dL (12.9-16.9) L 04/11/18 03:32 Hct 25.5 % (37.5-50.1) L 04/11/18 03:32 MPV 8.5 fL (9.4-12.4) L 04/11/18 03:32 Band Neutrophils % 36.0 % (0-4) H 04/11/18 03:32 Metamyelocytes % 4.0 % (0) H 04/09/18 03:18 Neutrophils # 14.6 K/mcL (1.6-8.9) H 04/11/18 03:32 Eosinophils # 0.7 K/mcL (0.0-0.6) H 04/11/18 03:32 Toxic Granulation Present (Not Present) A 04/10/18 17:05 Immature Plt Fraction 0.7 % (1.1-6.1) L 04/10/18 03:27 PT 12.3 Seconds (9.4-12.1) H 04/08/18 20:32 Chloride 110 mEq/L (98-107) H 04/11/18 03:32 BUN 60 mg/dL (8-23) H 04/11/18 03:32 Creatinine 2.04 mg/dL (0.70-1.30) H 04/11/18 03:32 Est GFR ( Amer) 39 (> 60) L 04/11/18 03:32 Est GFR (Non-Af Amer) 32 (> 60) L 04/11/18 03:32 BUN/Creatinine Ratio 29 (6-26) H 04/11/18 03:32 Calculated Osmolality 306 (280-300) H 04/11/18 03:32 Magnesium 2.9 mg/dL (1.6-2.6) H 04/11/18 03:32 Alkaline Phosphatase 110 Units/L (34-104) H 04/08/18 20:32 Troponin I 0.29 ng/mL (< 0.04) H* 04/09/18 18:00 B-Natriuretic Peptide 328 pg/mL (Less than 100) H 04/09/18 12:32 - Microbiology Findings Microbiology Findings: Microbiology, Last 48 Hours 04/09/18 03:18 Blood Culture - Preliminary Arterial Line No growth. 04/09/18 03:18 Blood Culture - Preliminary Arterial Line No growth. - Clinical Findings Intake & Output: Intake & Output 04/10/18 04/11/18 04/11/18 23:59 07:59 15:59 Intake Total 225 / 225 1100 / 1100 100 / 100 Output Total 700 / 700 325 / 325 Balance -475 / -475 775 / 775 100 / 100 Consult Discharge Plan - Plan Referrals: Jim Reid MD [Primary Care Provider] - - Attending Attestation I examined this patient and my medical decision-making was reviewed with the Resident Physician. I agree with the documented findings, disposition and treatment plan as described except to the extent set forth below. We independently had [id number] contact with the patient Patient seen and examined at bedside Labs, radiology, chart personally reviewed. Management was reviewed during multidisciplinary critical care rounds. 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 Lines: All lines examined without evidence of infection : Dispo: Stable for transfer out of the ICU to telemetry for ongoing care pulmonary will sign off CODE: Full <Bernard Rey - Last Filed: 04/11/18 16:27> Date of Encounter: 04/11/18 Time of Encounter: 09:45 Assessment and Plan (1) Perforated duodenal ulcer Current Visit: Yes Status: Acute Pneumoperitoneum demonstrated by abdominal CT. Etiology likely secondary to the patient's chronic NSAID use. Dr. Escamilla of general surgery contacted by ED. NG tube in place. At admission Afebrile, tachycardic 136, BP 71/49. Patient is received Flagyl and unasyn in ED. Perforation is likely secondary to chronic NSAID use. He has had chronic abdominal pain that he attributes to NSAIDs that he takes for his ankylosing spondylitis. Tachycardic at 97, WBC of 17.4 abdominal exam is distended, no longer tender, diminished bowel sounds patient reports pain is well-controlled PLAN -IV Zosyn, fluconazole, vancomycin -general surgery following-Will repeat CT on 04/12, Appreciate recs, managing conservatively per surgery at this point. -NPO, NGT in place management per surgery -oxycodone sublingual PRN pain, Fentanyl PRN -IV Protonix -blood culture pending preliminary no growth -holding NSAIDs (2) Ankylosing spondylitis Current Visit: Yes Status: Acute History of known ankylosing spondylitis taking indomethacin on a regular basis for about 30 years -holding NSAIDs Qualifiers: Ankylosing spondylitis location: unspecified site of spine Qualified Code(s ): M45.9 - Ankylosing spondylitis of unspecified sites in spine (3) Sepsis Current Visit: Yes Status: Acute - Likely secondary to perforated duodenal ulcer -Currently on Zosyn, vancomycin, fluconazole - Surgery following, appreciate recommendations. Elected for conservative management of this time - Elevated WBC of 17.4, heart rate of 97. - Clinically improving Plan - Continue current management. Qualifiers: Sepsis type: sepsis due to unspecified organism Qualified Code(s): A41.9 - Sepsis, unspecified organism (4) Hyperlipemia Current Visit: Yes Status: Chronic Continue home meds Qualifiers: Hyperlipidemia type: unspecified Qualified Code(s): E78.5 - Hyperlipidemia , unspecified (5) Hypoxia Current Visit: Yes Status: Acute Patient is requiring some supplemental oxygen. Initially believed related to aggressive fluid resuscitation and overload. Patient's fluids were held yesterday. Patient likely has an element of lung splinting given perforated viscus. Patient does have appropriate pain control. Possibly secondary to fluid status versus pain We will attempt to wean as able Plan -incentive spirometry -increase activity out of bed -echo as below -if respiratory status worsens, obtain CT of the chest. (6) Elevated troponin Current Visit: Yes Status: Acute Troponin elevated at 0.04, 0.4, 0.29. Patient denies any chest pain. No associated EKG changes. Likely demand ischemia from patient's sepsis. Mild diastolic dysfunction on echocardiogram, otherwise normal (7) Leukocytosis Current Visit: Yes Status: Acute - Stable from yesterday at 17.4 (18.4) - Afebrile - Possibly secondary to perforated bowel viscus as above Plan - Continue antibiotics as above - Appears to be clinically improving Qualifiers: Leukocytosis type: bandemia Qualified Code(s): D72.825 - Bandemia (8) Acute kidney injury superimposed on chronic kidney disease Current Visit: Yes Status: Acute - BUN/Cr of 60/2.04, improved from previous (2.19, 2.31 - Baseline around 1.29 on admission - Likely pre-renal given FE urea. Improved after fluid bolus - Acute kidney injury likely secondary to a combination of factors including dehydration, renee inhibitor, chronic NSAID use. -avoid nephrotoxic agents -monitor serum creatinine (9) DVT prophylaxis Current Visit: Yes Status: Acute Heparin 5000 q8hrs Subjective Principal diagnosis: Perforated abdominal viscus, hypoxemia Interval history: Patient was seen and examined at bedside this morning. He reports no further episodes of chest pain, SOB, abdominal pain, nausea, vomiting. States he is back to baseline but does complain that his mouth is dry. Objective PUL Vital signs: Last Vital Signs Temp 98.5 F 04/11/18 04:00 Pulse 98 04/11/18 09:00 Resp 18 04/11/18 09:00 BP 135/85 04/11/18 09:00 Pulse Ox 95 04/11/18 09:00 Gen.: Vitals noted. No acute distress. AAOx3 HEENT: PERRL/EOMI, oropharynx clear, Normocephalic, atraumatic, dry mucous membranes, NG tube in place with yellow drainage. Cardiac: RRR, no murmur, +S1/S2 Pulmonary: CTA bilaterally, no wheezes, rales or rhonchi, equal chest expansion Abdomen: soft, nontender, scant BS, distended. Extremities: no BLE edema, nontender calf, no cyanosis or clubbing Neuro: A&Ox3, moves all extremities, no focal deficits Psych: Appropriate mood and behavior Results - Laboratory Findings CBC and BMP: 04/11/18 03:32 04/11/18 03:32 PT/INR, D-dimer PT 12.3 Seconds (9.4-12.1) H 04/08/18 20:32 Abnormal lab findings: Abnormal lab results WBC 17.4 K/mcL (4.3-11.1) H 04/11/18 03:32 RBC 2.60 M/mcL (4.19-5.50) L 04/11/18 03:32 Hgb 8.6 g/dL (12.9-16.9) L 04/11/18 03:32 Hct 25.5 % (37.5-50.1) L 04/11/18 03:32 MPV 8.5 fL (9.4-12.4) L 04/11/18 03:32 Band Neutrophils % 36.0 % (0-4) H 04/11/18 03:32 Metamyelocytes % 4.0 % (0) H 04/09/18 03:18 Neutrophils # 14.6 K/mcL (1.6-8.9) H 04/11/18 03:32 Eosinophils # 0.7 K/mcL (0.0-0.6) H 04/11/18 03:32 Toxic Granulation Present (Not Present) A 04/10/18 17:05 Immature Plt Fraction 0.7 % (1.1-6.1) L 04/10/18 03:27 PT 12.3 Seconds (9.4-12.1) H 04/08/18 20:32 Chloride 110 mEq/L (98-107) H 04/11/18 03:32 BUN 60 mg/dL (8-23) H 04/11/18 03:32 Creatinine 2.04 mg/dL (0.70-1.30) H 04/11/18 03:32 Est GFR ( Amer) 39 (> 60) L 04/11/18 03:32 Est GFR (Non-Af Amer) 32 (> 60) L 04/11/18 03:32 BUN/Creatinine Ratio 29 (6-26) H 04/11/18 03:32 Calculated Osmolality 306 (280-300) H 04/11/18 03:32 Magnesium 2.9 mg/dL (1.6-2.6) H 04/11/18 03:32 Alkaline Phosphatase 110 Units/L (34-104) H 04/08/18 20:32 Troponin I 0.29 ng/mL (< 0.04) H* 04/09/18 18:00 B-Natriuretic Peptide 328 pg/mL (Less than 100) H 04/09/18 12:32 - Microbiology Findings Microbiology Findings: Microbiology, Last 48 Hours 04/09/18 03:18 Blood Culture - Preliminary Arterial Line No growth. 04/09/18 03:18 Blood Culture - Preliminary Arterial Line No growth. - Clinical Findings Intake & Output: Intake & Output 04/10/18 04/11/18 04/11/18 23:59 07:59 15:59 Intake Total 225 / 225 1100 / 1100 100 / 100 Output Total 700 / 700 325 / 325 Balance -475 / -475 775 / 775 100 / 100 - VTE Documentation of Mechanical Device: Intermittent pneumatic compression device
--- NOTE | 2018-04-11 11:09 | General Surgery Progress Note ---
Date of Encounter: 04/11/18 Time of Encounter: 09:45 - Assessment and Plan (1) Perforated duodenal ulcer Current Visit: Yes Status: Acute Continue NPO NG tube to LIWS IV antibiotics- Zosyn, Vancomycin, Diflucan IV fluids Supportive care Serial abdominal exams Plan for UGI in the am 04/12/18 for follow-up on duodenal ulcer Surgery will continue to follow and assess progress May transfer to [facility] only with telemetry Continue central line for IV access Continue love catheter for strict I&Os Repeat am labs- CBC, BMP, Mg, Phos (2) Acute kidney injury superimposed on chronic kidney disease Current Visit: Yes Status: Acute Cr- 2.31>2.19>2.01 Continue love catheter to SD for strict I&Os Avoid nephrotoxic medications IV fluids Repeat am labs (3) Leukocytosis Current Visit: Yes Status: Acute WBC- 18.4>17.4 IV antibiotics- Zosyn, Vancomycin, Diflucan Qualifiers: Leukocytosis type: bandemia Qualified Code(s): D72.825 - Bandemia (4) Anemia Current Visit: No Status: Chronic Hgb- 10.9>9.1>8.6 No obvious source for blood loss Continue to monitor- repeat am labs Qualifiers: Anemia type: unspecified type Qualified Code(s): D64.9 - Anemia, unspecified (5) DVT prophylaxis Current Visit: Yes Status: Acute Heparin 5,000 units SQ TID for DVT prophylaxis Out of bed with assistance TID Subjective Patient reports: no new complaints, feels better, still having pain, pain is less, flatus, no bowel movement, afebrile Objective Vital Signs - Last 8 Hours Temp Pulse Resp BP Pulse Ox 04/11/18 10:00 97 20 154/86 93 04/11/18 09:00 98 18 135/85 95 04/11/18 08:00 96 22 124/90 94 04/11/18 07:00 92 18 132/82 94 04/11/18 06:00 79 21 127/77 93 04/11/18 05:00 93 24 122/92 93 04/11/18 04:00 98.5 F 88 21 135/78 93 04/11/18 03:53 89 Intake and Output 04/10/18 04/11/18 04/11/18 23:59 07:59 15:59 Intake Total 225 / 225 1100 / 1100 350 / 350 Output Total 700 / 700 325 / 325 Balance -475 / -475 775 / 775 350 / 350 Intake: IV Fluids 225 / 225 1100 / 1100 350 / 350 0.9 % Sodium Chloride 1,000 ML 125 / 125 1000 / 1000 @ 75 mls/hr IVC .[id number] [facility] Rx #:[id number] Diflucan Premix 200 MG/100 ML 100 / 100 200 mg In 100 ml @ 100 mls/hr IVPB DAILY [facility] Rx#:[id number] Zosyn 3.375 GM In 0.9 % Sodium 100 / 100 100 / 100 Chloride (Mini-Bag +) 100 ML @ 25 mls/hr IVPB Q8HR [facility] Rx#: [id number] Vancocin 1,500 MG In 0.9 % 250 / 250 Sodium Chloride 250 ML @ 166. 667 mls/hr IVPB ONCE ONE Rx#: [id number] Oral 0 / 0 Output: Straight Cath 300 / 300 Catheter 400 / 400 300 / 300 Gastric Drainage 0 / 0 25 / 25 Other: Blood Glucose* 82 - General physical appearance well developed, well nourished, no distress, obese - Eyes PERRL, normal ocular movement - ENT dry mucosa, atraumatic, normocephalic - Neck Neck exam: trachea midline - Respiratory normal respiratory effort, clear to auscultation, other (diminished bibasilar bases) - Cardiovascular Cardiovascular exam: Present: RRR - Abdomen Abdomen: Present: bowel sounds present, soft, non tender, wound (NG tube to LIWS with minimal amount of bilious drainage noted) - Incision Incision: Present: clean and dry, intact - Genitourinary other (love catheter to SD with clear yellow urine noted (600m noted since midnight)) - Neurologic CN 2-12 grossly intact - Psychiatric oriented to time, oriented to person, oriented to place, speech is normal, memory intact - Labs 04/11/18 03:32 04/11/18 03:32 Diabetes panel 04/11/18 Range/Units 03:32 Sodium 140 (136-145) mEq/L Potassium 4.3 (3.5-5.1) mEq/L Chloride 110 H (98-107) mEq/L Carbon Dioxide 24 (23-29) mEq/L BUN 60 H (8-23) mg/dL Creatinine 2.04 H (0.70-1.30) mg/dL Glucose 78 (70-105) mg/dL Calcium 9.4 (8.6-10.3) mg/dL Calcium panel 04/11/18 Range/Units 03:32 Calcium 9.4 (8.6-10.3) mg/dL Phosphorus 3.7 (2.7-4.5) mg/dL Pituitary panel 04/11/18 Range/Units 03:32 Sodium 140 (136-145) mEq/L Potassium 4.3 (3.5-5.1) mEq/L Chloride 110 H (98-107) mEq/L Carbon Dioxide 24 (23-29) mEq/L BUN 60 H (8-23) mg/dL Creatinine 2.04 H (0.70-1.30) mg/dL Glucose 78 (70-105) mg/dL Calcium 9.4 (8.6-10.3) mg/dL Adrenal panel 04/11/18 Range/Units 03:32 Sodium 140 (136-145) mEq/L Potassium 4.3 (3.5-5.1) mEq/L Chloride 110 H (98-107) mEq/L Carbon Dioxide 24 (23-29) mEq/L BUN 60 H (8-23) mg/dL Creatinine 2.04 H (0.70-1.30) mg/dL Glucose 78 (70-105) mg/dL Calcium 9.4 (8.6-10.3) mg/dL - VTE Documentation of Mechanical Device: Intermittent pneumatic compression device Consult Discharge Plan - Plan Referrals: Jim Reid MD [Primary Care Provider] - - Attending Attestation For this encounter, I have reviewed the PHOTOGRAPHER MODEL or PA documentation, treatment plan, and medical decision making; and I have had face to face time with this patient.
[2018-04-11] MEDS ORDERED: Naloxone 0.4 MG/ML INJ IVP PRN (11:15)
[2018-04-11] MEDS ORDERED: Saliva Stimulant 100ml BOTTLE PO PRN (11:15)
[2018-04-11] MEDS ORDERED: *HR* FentaNYL (PF) 100 MCG/2 ML VIAL IVP PRN (11:15)
[2018-04-11] MEDS ORDERED: OXYCODONE Oral CONC 10 MG/0.5 ML ORAL.SYG SL PRN (11:15)
--- NOTE | 2018-04-11 13:12 | Electrocardiograph Report ---
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
--- NOTE | 2018-04-11 13:14 | Electrocardiograph Report ---
[address] [place], [place] [address] Test Date: 2018-04-09 Pat Name: Jai Ortiz Department: 109 Room: [facility] Gender: M Bar Tacker: [facility] [place] 1945 Requested By: Kash Ponce Order Number: [id number] Reading MD: Mac Ham Measurements Intervals [place] Rate: 95 P: 38 NC: 192 QRS: -12 QRSD: 102 T: 11 QT: 319 QTc: 372 Interpretive Statements SINUS RHYTHM Electronically Signed On 04-11-2018 10:01:57 EDT by Mac Ham
--- NOTE | 2018-04-11 13:15 | Electrocardiograph Report ---
[address] [place], [place] [address] Test Date: 2018-04-10 Pat Name: Jai Ortiz Department: 109 Room: [facility] Gender: M Pen Rider: : 1945 Requested By: Kunal Vidales Order Number: [id number] Reading MD: Mac Ham Measurements Intervals [place] Rate: 90 P: 15 WV: 170 QRS: -11 QRSD: 114 T: 29 QT: 335 QTc: 383 Interpretive Statements SINUS RHYTHM MODERATE INTRAVENTRICULAR CONDUCTION DELAY Electronically Signed On 04-11-2018 10:08:49 EDT by Mac Ham
--- NOTE | 2018-04-11 15:06 | Orthopedics Progress Note ---
Date of Encounter: 04/11/18 Time of Encounter: 15:05 Subjective Principal diagnosis: Perforated abdominal viscus, hypoxemia Interval history: Patient seen this morning while in the ICU and then again this afternoon patient has no right hip complaints. Patient's dressings clean dry and intact. Patient carries being directed by general surgery and medicine. We will continue to follow him closely. He will begin to actively we have his hip. Objective Vital signs: Vital Signs Temp Pulse Resp BP Pulse Ox 04/11/18 12:10 98.4 F 97 17 150/85 94 04/11/18 10:00 97 20 154/86 93 04/11/18 09:00 98 18 135/85 95 04/11/18 08:00 96 22 124/90 94 04/11/18 07:00 92 18 132/82 94 04/11/18 06:00 79 21 127/77 93 04/11/18 05:00 93 24 122/92 93 04/11/18 04:00 98.5 F 88 21 135/78 93 04/11/18 03:53 89 04/11/18 03:00 87 22 122/70 93 04/11/18 02:00 96 24 121/81 92 04/11/18 01:00 96 18 130/87 93 04/11/18 00:00 96 16 128/73 93 04/10/18 23:38 102 04/10/18 23:09 98.3 F 04/10/18 23:00 102 18 134/86 94 04/10/18 22:00 101 16 139/79 94 04/10/18 21:00 100 16 128/82 95 04/10/18 20:00 105 17 142/87 92 04/10/18 19:45 98 04/10/18 19:00 90 16 119/85 93 04/10/18 18:47 97.5 F L 04/10/18 18:00 92 12 121/68 92 04/10/18 17:00 94 11 123/76 97 04/10/18 16:00 98.1 F 93 14 119/68 94 04/10/18 15:34 93 Intake and Output 04/10/18 04/11/18 04/11/18 23:59 07:59 15:59 Intake Total 225 / 225 1100 / 1100 350 / 350 Output Total 700 / 700 325 / 325 400 / 400 Balance -475 / -475 775 / 775 -50 / -50 Intake: IV Fluids 225 / 225 1100 / 1100 350 / 350 0.9 % Sodium Chloride 1,000 ML 125 / 125 1000 / 1000 @ 75 mls/hr IVC .[id number] [facility] Rx #:[id number] Diflucan Premix 200 MG/100 ML 100 / 100 200 mg In 100 ml @ 100 mls/hr IVPB DAILY [facility] Rx#:[id number] Zosyn 3.375 GM In 0.9 % Sodium 100 / 100 100 / 100 Chloride (Mini-Bag +) 100 ML @ 25 mls/hr IVPB Q8HR [facility] Rx#: [id number] Vancocin 1,500 MG In 0.9 % 250 / 250 Sodium Chloride 250 ML @ 166. 667 mls/hr IVPB ONCE ONE Rx#: [id number] Oral 0 / 0 Output: Straight Cath 300 / 300 Catheter 400 / 400 300 / 300 400 / 400 Gastric Drainage 0 / 0 25 / 25 Other: Blood Glucose* 82 75 - Labs CBC & BMP: 04/11/18 03:32 04/11/18 03:32 Labs: Abnormal lab results WBC 17.4 K/mcL (4.3-11.1) H 04/11/18 03:32 RBC 2.60 M/mcL (4.19-5.50) L 04/11/18 03:32 Hgb 8.6 g/dL (12.9-16.9) L 04/11/18 03:32 Hct 25.5 % (37.5-50.1) L 04/11/18 03:32 MPV 8.5 fL (9.4-12.4) L 04/11/18 03:32 Band Neutrophils % 36.0 % (0-4) H 04/11/18 03:32 Metamyelocytes % 4.0 % (0) H 04/09/18 03:18 Neutrophils # 14.6 K/mcL (1.6-8.9) H 04/11/18 03:32 Eosinophils # 0.7 K/mcL (0.0-0.6) H 04/11/18 03:32 Toxic Granulation Present (Not Present) A 04/10/18 17:05 Immature Plt Fraction 0.7 % (1.1-6.1) L 04/10/18 03:27 PT 12.3 Seconds (9.4-12.1) H 04/08/18 20:32 Chloride 110 mEq/L (98-107) H 04/11/18 03:32 BUN 60 mg/dL (8-23) H 04/11/18 03:32 Creatinine 2.04 mg/dL (0.70-1.30) H 04/11/18 03:32 Est GFR ( Amer) 39 (> 60) L 04/11/18 03:32 Est GFR (Non-Af Amer) 32 (> 60) L 04/11/18 03:32 BUN/Creatinine Ratio 29 (6-26) H 04/11/18 03:32 Calculated Osmolality 306 (280-300) H 04/11/18 03:32 Magnesium 2.9 mg/dL (1.6-2.6) H 04/11/18 03:32 Alkaline Phosphatase 110 Units/L (34-104) H 04/08/18 20:32 Troponin I 0.29 ng/mL (< 0.04) H* 04/09/18 18:00 B-Natriuretic Peptide 328 pg/mL (Less than 100) H 04/09/18 12:32 - VTE Documentation of Mechanical Device: Intermittent pneumatic compression device Consult Discharge Plan - Plan Referrals: Jim Reid MD [Primary Care Provider] -
[2018-04-11] MEDS: Latanoprost 2.5 ML BOTTLE RIGHT EYE SCH (22:21)
[2018-04-12] MEDS: Piperacillin/Tazobactam 3.375 GM in 0.9 % Sodium Chloride Mini Bag 100 ML IVPB SCH ×4 (00:21→23:38)
[2018-04-12] MEDS: *HR* Heparin 5,000 UNIT/ML VIAL SQ SCH ×3 (04:47→21:30)
[2018-04-12] MEDS: Pantoprazole 40 MG VIAL IVP SCH ×2 (04:47→15:56)
[2018-04-12 05:20] LABS: Basophils % 0.2 %; Eosinophils % 0.2 %; Hematocrit 24.6 % (37.5-50.1); Immature Granulocytes % 0.7 % (0-4); Lymphocytes # 0.6 K/mcL (0.6-4.6); Lymphocytes % 3.4 %; Mean Corpuscular HGB Conc 32.5 g/dL (31.6-35.5); Mean Corpuscular Volume 98.4 fL (83.0-100.0); Mean Platelet Volume 8.7 fL (9.4-12.4); Monocytes # 0.8 K/mcL (0.0-1.3); Monocytes % 4.5 %; Neutrophils # 15.5 K/mcL (1.6-8.9); Platelet Count 193 K/mcL (140-400); Red Cell Distribution Width 13.6 % (11.5-14.5)
[2018-04-12 05:41] LABS: Calcium 9.6 mg/dL (8.6-10.3); Magnesium 2.6 mg/dL (1.6-2.6); Phosphorous 3.9 mg/dL (2.7-4.5); Potassium 3.5 mEq/L (3.5-5.1)
[2018-04-12 05:48] LABS: Platelet Estimate Normal (Normal)
--- NOTE | 2018-04-12 06:49 | Orthopedics Progress Note ---
Date of Encounter: 04/12/18 Time of Encounter: 06:48 Subjective Principal diagnosis: Perforated abdominal viscus, hypoxemia Interval history: Patient seen this morning. Doing well white count Slightly improved creatinine improving. Continue care as per hospitalist and surgical team Objective Vital signs: Vital Signs Temp Pulse Resp BP Pulse Ox 04/12/18 04:46 98.5 F 78 18 126/71 93 04/12/18 00:19 99.1 F 92 20 156/96 97 04/11/18 18:54 98.3 F 96 18 144/80 97 04/11/18 17:31 98.4 F 72 17 128/71 94 04/11/18 12:10 98.4 F 97 17 150/85 94 04/11/18 10:00 97 20 154/86 93 04/11/18 09:00 98 18 135/85 95 04/11/18 08:00 96 22 124/90 94 04/11/18 07:00 92 18 132/82 94 Intake and Output 04/11/18 04/11/18 04/12/18 15:59 23:59 07:59 Intake Total 350 / 350 100 / 100 0 / 0 Output Total 400 / 400 1050 / 1050 525 / 525 Balance -50 / -50 -950 / -950 -525 / -525 Intake: IV Fluids 350 / 350 100 / 100 Diflucan Premix 200 MG/100 ML 100 / 100 200 mg In 100 ml @ 100 mls/hr IVPB DAILY [facility] Rx#:[id number] Zosyn 3.375 GM In 0.9 % Sodium 100 / 100 Chloride (Mini-Bag +) 100 ML @ 25 mls/hr IVPB Q8HR [facility] Rx#: [id number] Vancocin 1,500 MG In 0.9 % 250 / 250 Sodium Chloride 250 ML @ 166. 667 mls/hr IVPB ONCE ONE Rx#: [id number] Oral 0 / 0 0 / 0 Output: Catheter 400 / 400 1050 / 1050 475 / 475 Gastric Drainage 0 / 0 50 / 50 Other: Stool Size Large Stool Consistency formed Stool Color Brown Blood Glucose* 75 76 83 - Labs CBC & BMP: 04/12/18 04:00 04/12/18 04:00 Labs: Abnormal lab results WBC 17.0 K/mcL (4.3-11.1) H 04/12/18 04:00 RBC 2.50 M/mcL (4.19-5.50) L 04/12/18 04:00 Hgb 8.0 g/dL (12.9-16.9) L 04/12/18 04:00 Hct 24.6 % (37.5-50.1) L 04/12/18 04:00 MPV 8.7 fL (9.4-12.4) L 04/12/18 04:00 Band Neutrophils % 36.0 % (0-4) H 04/11/18 03:32 Metamyelocytes % 4.0 % (0) H 04/09/18 03:18 Neutrophils # 15.5 K/mcL (1.6-8.9) H 04/12/18 04:00 Toxic Granulation Present (Not Present) A 04/10/18 17:05 Immature Plt Fraction 0.7 % (1.1-6.1) L 04/10/18 03:27 PT 12.3 Seconds (9.4-12.1) H 04/08/18 20:32 Sodium 146 mEq/L (136-145) H 04/12/18 04:00 Chloride 115 mEq/L (98-107) H 04/12/18 04:00 BUN 68 mg/dL (8-23) H 04/12/18 04:00 Creatinine 1.73 mg/dL (0.70-1.30) H 04/12/18 04:00 Est GFR ( Amer) 47 (> 60) L 04/12/18 04:00 Est GFR (Non-Af Amer) 39 (> 60) L 04/12/18 04:00 BUN/Creatinine Ratio 39 (6-26) H 04/12/18 04:00 Calculated Osmolality 321 (280-300) H 04/12/18 04:00 Alkaline Phosphatase 110 Units/L (34-104) H 04/08/18 20:32 Troponin I 0.29 ng/mL (< 0.04) H* 04/09/18 18:00 B-Natriuretic Peptide 328 pg/mL (Less than 100) H 04/09/18 12:32 - VTE Documentation of Mechanical Device: Intermittent pneumatic compression device Consult Discharge Plan - Plan Referrals: Jim Reid MD [Primary Care Provider] -
[2018-04-12] MEDS: Fluconazole 200 MG/100 ML 200 MG/100 ML BAG IVPB SCH (09:45)
[2018-04-12] MEDS: 0.9 % Sodium Chloride 1,000 ML IVC SCH (09:46)
--- NOTE | 2018-04-12 13:03 | General Surgery Progress Note ---
Date of Encounter: 04/12/18 Time of Encounter: 12:30 - Assessment and Plan (1) Perforated duodenal ulcer Current Visit: Yes Status: Acute UGI complete this am- no evidence of contrast extravasation NG tube removed Clear liquid diet- no carbonated drinks IV antibiotics- Zosyn, Diflucan IV fluids- decrease to 75ml/hour Supportive care Serial abdominal exams Surgery will continue to follow and assess progress Continue central line for IV access Remove love catheter today Repeat am labs- CBC, BMP (2) Acute kidney injury superimposed on chronic kidney disease Current Visit: Yes Status: Acute Cr- 2.31>2.19>2.01>1.73 Remove love catheter today Avoid nephrotoxic medications IV fluids Repeat am labs (3) Leukocytosis Current Visit: Yes Status: Acute WBC- 18.4>17.4>17 IV antibiotics- Zosyn, Diflucan Qualifiers: Leukocytosis type: bandemia Qualified Code(s): D72.825 - Bandemia (4) Anemia Current Visit: No Status: Chronic Hgb- 10.9>9.1>8.6>8 No obvious source for blood loss Continue to monitor- repeat am labs Qualifiers: Anemia type: unspecified type Qualified Code(s): D64.9 - Anemia, unspecified (5) DVT prophylaxis Current Visit: Yes Status: Acute Heparin 5,000 units SQ TID for DVT prophylaxis Out of bed with assistance TID Subjective Patient reports: no new complaints, feels better, flatus, bowel movement, afebrile Objective Vital Signs - Last 8 Hours Temp Pulse Resp BP Pulse Ox 04/12/18 11:40 98.6 F 63 18 130/93 94 04/12/18 07:34 98.6 F 75 18 122/67 95 Intake and Output 04/11/18 04/12/18 04/12/18 23:59 07:59 15:59 Intake Total 1100 / 1100 100 / 100 100 / 100 Output Total 1050 / 1050 525 / 525 300 / 300 Balance 50 / 50 -425 / -425 -200 / -200 Intake: IV Fluids 1100 / 1100 100 / 100 100 / 100 0.9 % Sodium Chloride 1,000 ML 1000 / 1000 @ 100 mls/hr IVC .Q10H [facility] Rx#: [id number] Diflucan Premix 200 MG/100 ML 100 / 100 200 mg In 100 ml @ 100 mls/hr IVPB DAILY [facility] Rx#:[id number] Zosyn 3.375 GM In 0.9 % Sodium 100 / 100 100 / 100 Chloride (Mini-Bag +) 100 ML @ 25 mls/hr IVPB Q8HR [facility] Rx#: [id number] Oral 0 / 0 0 / 0 0 / 0 Output: Catheter 1050 / 1050 475 / 475 300 / 300 Gastric Drainage 0 / 0 50 / 50 Other: Stool Size Large Moderate Stool Consistency formed formed Stool Color Brown Brown # Bowel Movements 1 Blood Glucose* 76 83 90 - General physical appearance well developed, well nourished, no distress, other (Patient doing well up in the chair) - Eyes normal ocular movement - ENT normal mucosa, atraumatic, normocephalic - Neck Neck exam: trachea midline - Respiratory normal respiratory effort, clear to auscultation - Cardiovascular Cardiovascular exam: Present: RRR - Abdomen Abdomen: Present: bowel sounds present, soft, non tender, wound (NG tube to LIWS with minimal amount of bilious drainage noted) - Genitourinary other (love catheter to SD with clear, yellow urine noted) - Neurologic CN 2-12 grossly intact - Psychiatric oriented to time, oriented to person, oriented to place, speech is normal, memory intact - Labs 04/12/18 04:00 04/12/18 04:00 Diabetes panel 04/12/18 Range/Units 04:00 Sodium 146 H (136-145) mEq/L Potassium 3.5 (3.5-5.1) mEq/L Chloride 115 H (98-107) mEq/L Carbon Dioxide 24 (23-29) mEq/L BUN 68 H (8-23) mg/dL Creatinine 1.73 H (0.70-1.30) mg/dL Glucose 93 (70-105) mg/dL Calcium 9.6 (8.6-10.3) mg/dL Calcium panel 04/12/18 Range/Units 04:00 Calcium 9.6 (8.6-10.3) mg/dL Phosphorus 3.9 (2.7-4.5) mg/dL Pituitary panel 04/12/18 Range/Units 04:00 Sodium 146 H (136-145) mEq/L Potassium 3.5 (3.5-5.1) mEq/L Chloride 115 H (98-107) mEq/L Carbon Dioxide 24 (23-29) mEq/L BUN 68 H (8-23) mg/dL Creatinine 1.73 H (0.70-1.30) mg/dL Glucose 93 (70-105) mg/dL Calcium 9.6 (8.6-10.3) mg/dL Adrenal panel 04/12/18 Range/Units 04:00 Sodium 146 H (136-145) mEq/L Potassium 3.5 (3.5-5.1) mEq/L Chloride 115 H (98-107) mEq/L Carbon Dioxide 24 (23-29) mEq/L BUN 68 H (8-23) mg/dL Creatinine 1.73 H (0.70-1.30) mg/dL Glucose 93 (70-105) mg/dL Calcium 9.6 (8.6-10.3) mg/dL - VTE Documentation of Mechanical Device: Intermittent pneumatic compression device Consult Discharge Plan - Plan Referrals: Jim Reid MD [Primary Care Provider] - - Attending Attestation For this encounter, I have reviewed the INSURANCE TERRITORY MANAGER or PA documentation, treatment plan, and medical decision making; and I have had face to face time with this patient.
[2018-04-12] MEDS ORDERED: 0.9 % Sodium Chloride 1,000 ML IVC SCH (13:15)
--- NOTE | 2018-04-12 16:11 | Event Note ---
Date of Encounter: 04/12/18 Time of Encounter: 16:09 Patient doing well. NG tube removed. Tolerating liquids well. Anticipate removing catheter today.
[2018-04-12] MEDS: Latanoprost 2.5 ML BOTTLE RIGHT EYE SCH (21:30)
--- NOTE | 2018-04-12 22:05 | Internal Med Progress Note ---
Date of Encounter: 04/12/18 Time of Encounter: 17:00 - Assessment and plan (1) Perforated duodenal ulcer Current Visit: Yes Status: Acute Assessment and plan: CT abdomen/pelvis showed pneumoperitoneum. Duodenal ulcer thought to be secondary to chronic regular NSAID use for ankylosing spondylitis. General surgery on board, recommend conservative medical management at this time. Patient has been improving. NG tube has been discontinued today, started clear liquid diet. Continue IV antibiotics-Zosyn and fluconazole per surgery recommendations. Continues to require 4 L/m supplemental oxygen via nasal cannula. Stable leukocytosis around 17. Continue pain control, supportive care. (2) Acute kidney injury superimposed on chronic kidney disease Current Visit: Yes Status: Acute Assessment and plan: Baseline serum creatinine noted to be around 1.2. Serum creatinine currently improved to 1.73. Continue IV hydration, avoid new nephrotoxic agents. Monitor urine output. (3) Sepsis Current Visit: Yes Status: Ruled-out Assessment and plan: Presented with leukocytosis, tachycardia, tachypnea and hypoxia. This is likely secondary to the perforated ulcer and surgical issues rather than sepsis itself. Lactic acid was noted to be normal. Qualifiers: Sepsis type: sepsis due to unspecified organism Qualified Code(s): A41.9 - Sepsis, unspecified organism (4) Ankylosing spondylitis Current Visit: Yes Status: Chronic Assessment and plan: Avoid aspirin and NSAIDs. Pain control with when necessary Tylenol and oral oxycodone. Qualifiers: Ankylosing spondylitis location: unspecified site of spine Qualified Code(s ): M45.9 - Ankylosing spondylitis of unspecified sites in spine (5) DVT prophylaxis Current Visit: Yes Status: Acute (6) Hyperlipemia Current Visit: Yes Status: Chronic Qualifiers: Hyperlipidemia type: unspecified Qualified Code(s): E78.5 - Hyperlipidemia , unspecified (7) Hypoxia Current Visit: Yes Status: Acute (8) Elevated troponin Current Visit: Yes Status: Acute Assessment and plan: Troponin leak thought to be due to hypoxemia and demand ischemia. Peak troponin at 0.4, trending down. Continue telemetry monitoring. Echocardiogram shows preserved ejection fraction, mild left ventricular diastolic dysfunction. (9) Leukocytosis Current Visit: Yes Status: Acute Qualifiers: Leukocytosis type: unspecified Qualified Code(s): D72.829 - Elevated white blood cell count, unspecified - Time Spent With Patient Total time spent is greater than 50% in coordination of care (as documented) at patient's floor/unit and/or counseling patient: - Subjective Interval history: Reports feeling better; had NG tube and Florence catheter removed today; tolerates clear liquids; no abdominal or chest pain, no fever/chills, shortness of breath ; does have leg swelling and recently had right hip replacement; - Constitutional Vitals: Temp Pulse Resp BP Pulse Ox 98.6 F 92 18 150/88 93 04/12/18 19:36 04/12/18 19:36 04/12/18 19:36 04/12/18 19:36 04/12/18 19:36 General appearance: Present: A&O X 3, answers questions appropriately - Respiratory Respiratory exam: Present: CTAB. Absent: accessory muscle use, rales, rhonchi, wheezes - Cardiovascular Cardiovascular exam: Present: RRR, +S1, +S2. Absent: diastolic murmur, gallop, rubs, systolic murmur - GI/Abdominal GI/Abdominal exam: Present: distended, normal bowel sounds, soft, no peritoneal signs. Absent: tenderness - Extremities Exam Extremities exam: Present: pedal edema, warm, radial pulses palpable and symmetrical. Absent: calf tenderness, cyanotic - Neurological Exam Neurological exam: Present: CN II-XII intact, oriented X3, no focal deficits. Absent: pronater drift, facial droop, speech deficit Internal Medicine: Result - Labs CBC & Chem 7: 04/13/18 01:41 04/13/18 01:41 Labs: Short CBC 04/12/18 Range/Units 04:00 WBC 17.0 H (4.3-11.1) K/mcL Hgb 8.0 L (12.9-16.9) g/dL Hct 24.6 L (37.5-50.1) % Plt Count 193 (140-400) K/mcL Neutrophils # 15.5 H (1.6-8.9) K/mcL BMP 04/12/18 04:00 Sodium 146 H Potassium 3.5 Chloride 115 H Carbon Dioxide 24 BUN 68 H Creatinine 1.73 H Glucose 93 Calcium 9.6 - ABG Interpretation ABG results: PT/INR, D-dimer PT 12.3 Seconds (9.4-12.1) H 04/08/18 20:32 - Impressions Impressions Upper GI Series 04/12/18 07:00 IMPRESSION: 1. No evidence for duodenal leak. D/ / Farrukh Donohue MD / Farrukh Donohue MD Interpreting Provider: Farrukh Donohue MD - VTE Documentation of Mechanical Device: Intermittent pneumatic compression device Consult Discharge Plan - Plan Additional Instructions: Full liquid diet and advance to soft diet as tolerated (avoid chicken, steak, pork, roast beef for the next 2 weeks). Avoid carbonated drinks for 2 weeks. F/up with PCP in 1-2 weeks Referrals: Alok Escamilla DO [Partnered Physician] - 05/03/18 9:10 am Jim Reid MD [Primary Care Provider] - Prescriptions: Amoxicillin/Clavulanate [Augmentin] 875 mg PO BIDWM #4 tablet Pantoprazole Sodium [Protonix] 40 mg PO BID #60 tablet.
[2018-04-13 01:59] LABS: Basophils % 0.1 %; Eosinophils # 0.1 K/mcL (0.0-0.6); Eosinophils % 0.9 %; Hematocrit 26.9 % (37.5-50.1); Hemoglobin 8.8 g/dL (12.9-16.9); Immature Granulocytes % 1.1 % (0-4); Lymphocytes # 0.5 K/mcL (0.6-4.6); Lymphocytes % 3.5 %; Mean Corpuscular HGB Conc 32.7 g/dL (31.6-35.5); Mean Corpuscular Hemoglobin 31.7 pg (28.0-33.3); Mean Corpuscular Volume 96.8 fL (83.0-100.0); Mean Platelet Volume 8.7 fL (9.4-12.4); Monocytes # 0.9 K/mcL (0.0-1.3); Monocytes % 6.3 %; Platelet Count 220 K/mcL (140-400); Red Blood Count 2.78 M/mcL (4.19-5.50); Red Cell Distribution Width 13.7 % (11.5-14.5); Segmented Neutrophils % 88.1 %
[2018-04-13 02:21] LABS: Calcium 9.8 mg/dL (8.6-10.3); Potassium 2.9 mEq/L (3.5-5.1)
[2018-04-13] MEDS: *HR* Heparin 5,000 UNIT/ML VIAL SQ SCH ×2 (04:26→12:30)
[2018-04-13] MEDS: Pantoprazole 40 MG VIAL IVP SCH (04:26)
--- NOTE | 2018-04-13 06:54 | Orthopedics Progress Note ---
Date of Encounter: 04/13/18 Time of Encounter: 06:53 Subjective Principal diagnosis: Perforated abdominal viscus, hypoxemia Interval history: Patient seen this morning. Doing well NG tube removed still no issues with regards to right hip. Objective Vital signs: Vital Signs Temp Pulse Resp BP Pulse Ox 04/13/18 03:36 98.4 F 104 18 145/87 94 04/12/18 23:50 98.3 F 84 18 156/84 94 04/12/18 19:36 98.6 F 92 18 150/88 93 04/12/18 15:54 98.2 F 101 18 145/88 93 04/12/18 11:40 98.6 F 63 18 130/93 94 04/12/18 07:34 98.6 F 75 18 122/67 95 Intake and Output 04/12/18 04/12/18 04/13/18 15:59 23:59 07:59 Intake Total 200 / 200 350 / 350 300 / 300 Output Total 300 / 300 400 / 400 450 / 450 Balance -100 / -100 -50 / -50 -150 / -150 Intake: IV Fluids 200 / 200 100 / 100 100 / 100 Diflucan Premix 200 MG/100 ML 100 / 100 200 mg In 100 ml @ 100 mls/hr IVPB DAILY [facility] Rx#:[id number] Zosyn 3.375 GM In 0.9 % Sodium 100 / 100 100 / 100 100 / 100 Chloride (Mini-Bag +) 100 ML @ 25 mls/hr IVPB Q8HR [facility] Rx#: [id number] Oral 0 / 0 250 / 250 200 / 200 Output: Urine 400 / 400 450 / 450 Catheter 300 / 300 Other: Stool Size Moderate Large Stool Consistency formed soft Stool Color Brown Brown # Voids 1 1 # Bowel Movements 1 1 Blood Glucose* 90 - Labs CBC & BMP: 04/13/18 01:41 04/13/18 01:41 Labs: Abnormal lab results WBC 14.7 K/mcL (4.3-11.1) H 04/13/18 01:41 RBC 2.78 M/mcL (4.19-5.50) L 04/13/18 01:41 Hgb 8.8 g/dL (12.9-16.9) L 04/13/18 01:41 Hct 26.9 % (37.5-50.1) L 04/13/18 01:41 MPV 8.7 fL (9.4-12.4) L 04/13/18 01:41 Band Neutrophils % 36.0 % (0-4) H 04/11/18 03:32 Metamyelocytes % 4.0 % (0) H 04/09/18 03:18 Neutrophils # 13.0 K/mcL (1.6-8.9) H 04/13/18 01:41 Lymphocytes # 0.5 K/mcL (0.6-4.6) L 04/13/18 01:41 Toxic Granulation Present (Not Present) A 04/10/18 17:05 Immature Plt Fraction 0.7 % (1.1-6.1) L 04/10/18 03:27 PT 12.3 Seconds (9.4-12.1) H 04/08/18 20:32 Sodium 147 mEq/L (136-145) H 04/13/18 01:41 Potassium 2.9 mEq/L (3.5-5.1) L 04/13/18 01:41 Chloride 116 mEq/L (98-107) H 04/13/18 01:41 Carbon Dioxide 22 mEq/L (23-29) L 04/13/18 01:41 BUN 61 mg/dL (8-23) H 04/13/18 01:41 Creatinine 1.44 mg/dL (0.70-1.30) H 04/13/18 01:41 Est GFR ( Amer) 58 (> 60) L 04/13/18 01:41 Est GFR (Non-Af Amer) 48 (> 60) L 04/13/18 01:41 BUN/Creatinine Ratio 42 (6-26) H 04/13/18 01:41 Glucose 116 mg/dL (70-105) H 04/13/18 01:41 Calculated Osmolality 322 (280-300) H 04/13/18 01:41 Alkaline Phosphatase 110 Units/L (34-104) H 04/08/18 20:32 Troponin I 0.29 ng/mL (< 0.04) H* 04/09/18 18:00 B-Natriuretic Peptide 328 pg/mL (Less than 100) H 04/09/18 12:32 - VTE Documentation of Mechanical Device: Intermittent pneumatic compression device Consult Discharge Plan - Plan Referrals: Jim Reid MD [Primary Care Provider] -
[2018-04-13] MEDS: Fluconazole 200 MG/100 ML 200 MG/100 ML BAG IVPB SCH (08:15)
[2018-04-13] MEDS: Piperacillin/Tazobactam 3.375 GM in 0.9 % Sodium Chloride Mini Bag 100 ML IVPB SCH (08:16)
[2018-04-13] MEDS: Potassium Chloride Elixir 20 MEQ/15 ML UDC PO SCH ×2 (09:34→12:30)
[2018-04-13 12:17] LABS: Magnesium 2.3 mg/dL (1.6-2.6)
--- NOTE | 2018-04-13 13:29 | General Surgery Progress Note ---
Date of Encounter: 04/13/18 Time of Encounter: 11:30 - Assessment and Plan (1) Perforated duodenal ulcer Current Visit: Yes Status: Acute UGI complete 04/12/18- no evidence of contrast extravasation Tolerating clear liquids May advance to full liquids IV antibiotics- Zosyn May convert to PO augmentin for 2 more days Saline lock IV fluids Supportive care May discharge to home from a surgery standpoint with PPI therapy BID and PO antibiotics for 2 more days- Augmentin (2) Acute kidney injury superimposed on chronic kidney disease Current Visit: Yes Status: Acute Cr- 2.31>2.19>2.01>1.73>1.44 Avoid nephrotoxic medications (3) Leukocytosis Current Visit: Yes Status: Acute WBC- 18.4>17.4>17>14.7 IV antibiotics- Zosyn May convert to PO augmentin for 2 more days Qualifiers: Leukocytosis type: bandemia Qualified Code(s): D72.825 - Bandemia (4) Anemia Current Visit: No Status: Chronic Hgb- 10.9>9.1>8.6>8>8.8 Stable No obvious source for blood loss Qualifiers: Anemia type: unspecified type Qualified Code(s): D64.9 - Anemia, unspecified (5) DVT prophylaxis Current Visit: Yes Status: Acute Heparin 5,000 units SQ TID for DVT prophylaxis Out of bed with assistance TID Subjective Patient reports: no new complaints, feels better, tolerating liquids well, voiding w/o difficulty, flatus, bowel movement, diarrhea, afebrile Objective Vital Signs - Last 8 Hours Temp Pulse Resp BP Pulse Ox 04/13/18 06:38 98.5 F 97 16 138/84 96 Intake and Output 04/12/18 04/13/18 04/13/18 23:59 07:59 15:59 Intake Total 350 / 350 300 / 300 310 / 310 Output Total 400 / 400 450 / 450 Balance -50 / -50 -150 / -150 310 / 310 Intake: IV Fluids 100 / 100 100 / 100 300 / 300 Diflucan Premix 200 MG/100 ML 100 / 100 200 mg In 100 ml @ 100 mls/hr IVPB DAILY [facility] Rx#:[id number] Zosyn 3.375 GM In 0.9 % Sodium 100 / 100 100 / 100 100 / 100 Chloride (Mini-Bag +) 100 ML @ 25 mls/hr IVPB Q8HR [facility] Rx#: [id number] Potassium Chloride 10 mEq/100mL 100 / 100 10 meq In 100 ml @ 100 mls/hr IVPB [facility]CE [facility] Rx#:[id number] Oral 250 / 250 200 / 200 10 / 10 Output: Urine 400 / 400 450 / 450 Other: Meal Breakfast Percent of Meal Consumed 30% Stool Size Large Stool Consistency soft Stool Color Brown # Voids 1 1 1 # Bowel Movements 1 1 - General physical appearance well developed, well nourished, no distress - Eyes normal ocular movement - ENT normal mucosa, atraumatic, normocephalic - Neck Neck exam: trachea midline - Respiratory normal respiratory effort, clear to auscultation - Cardiovascular Cardiovascular exam: Present: RRR - Abdomen Abdomen: Present: bowel sounds present, soft, non tender - Neurologic CN 2-12 grossly intact - Psychiatric oriented to time, oriented to person, oriented to place, speech is normal, memory intact - Labs 04/13/18 01:41 04/13/18 01:41 Diabetes panel 04/13/18 Range/Units 01:41 Sodium 147 H (136-145) mEq/L Potassium 2.9 L (3.5-5.1) mEq/L Chloride 116 H (98-107) mEq/L Carbon Dioxide 22 L (23-29) mEq/L BUN 61 H (8-23) mg/dL Creatinine 1.44 H (0.70-1.30) mg/dL Glucose 116 H (70-105) mg/dL Calcium 9.8 (8.6-10.3) mg/dL Calcium panel 04/13/18 Range/Units 01:41 Calcium 9.8 (8.6-10.3) mg/dL Pituitary panel 04/13/18 Range/Units 01:41 Sodium 147 H (136-145) mEq/L Potassium 2.9 L (3.5-5.1) mEq/L Chloride 116 H (98-107) mEq/L Carbon Dioxide 22 L (23-29) mEq/L BUN 61 H (8-23) mg/dL Creatinine 1.44 H (0.70-1.30) mg/dL Glucose 116 H (70-105) mg/dL Calcium 9.8 (8.6-10.3) mg/dL Adrenal panel 04/13/18 Range/Units 01:41 Sodium 147 H (136-145) mEq/L Potassium 2.9 L (3.5-5.1) mEq/L Chloride 116 H (98-107) mEq/L Carbon Dioxide 22 L (23-29) mEq/L BUN 61 H (8-23) mg/dL Creatinine 1.44 H (0.70-1.30) mg/dL Glucose 116 H (70-105) mg/dL Calcium 9.8 (8.6-10.3) mg/dL - VTE Documentation of Mechanical Device: Intermittent pneumatic compression device Consult Discharge Plan - Plan Additional Instructions: Full liquid diet and advance to soft diet as tolerated (avoid chicken, steak, pork, roast beef for the next 2 weeks). Avoid carbonated drinks for 2 weeks. Referrals: Jim Reid MD [Primary Care Provider] - Alok Escamilla DO [Partnered Physician] - 05/03/18 9:10 am Prescriptions: Amoxicillin/Clavulanate [Augmentin] 875 mg PO BIDWM #4 tablet Pantoprazole Sodium [Protonix] 40 mg PO BID #60 tablet. - Attending Attestation For this encounter, I have reviewed the CLAY STAIN MIXER or PA documentation, treatment plan, and medical decision making; and I have had face to face time with this patient.
--- NOTE | 2018-04-13 13:53 | Discharge Summary ---
Orders not resulted at time of discharge: Pending orders 04/09/18 03:18 Culture,Blood [] Stat Date of Encounter: 04/13/18 Time of Encounter: 13:51 - Discharge Diagnosis (1) Perforated duodenal ulcer Priority: Primary Status: Acute (2) Sepsis Priority: Primary Status: Ruled-out Qualifiers: Sepsis type: sepsis due to unspecified organism Qualified Code(s): A41.9 - Sepsis, unspecified organism (3) Elevated troponin Priority: Primary Status: Acute (4) Leukocytosis Priority: Primary Status: Acute Qualifiers: Leukocytosis type: unspecified Qualified Code(s): D72.829 - Elevated white blood cell count, unspecified (5) Acute kidney injury superimposed on chronic kidney disease Priority: Primary Status: Acute (6) Ankylosing spondylitis Priority: Secondary Status: Chronic Qualifiers: Ankylosing spondylitis location: unspecified site of spine Qualified Code(s ): M45.9 - Ankylosing spondylitis of unspecified sites in spine (7) Hyperlipemia Priority: Secondary Status: Chronic Qualifiers: Hyperlipidemia type: unspecified Qualified Code(s): E78.5 - Hyperlipidemia , unspecified Hospital course: Mr. Ortiz is a 72 year old male with the above medical problems and recent right total hip replacement, was admitted with acute onset of severe epigastric and upper abdominal pain. CT abdomen/pelvis showed pneumoperitoneum, patient was thought to have a perforated duodenal ulcer due to chronic regular use of NSAIDs for underlying ankylosing spondylitis. Surgery was consulted, recommended conservative medical management. Patient was started on bowel rest , nasogastric tube suction, IV hydration, empiric IV antibiotics Zosyn and fluconazole. He was noted to have hypoxic respiratory failure initially, transferred to ICU. Patient was initially noted to have leukocytosis, tachycardia, tachypnea and hypoxia, which are likely secondary to perforated ulcer rather than sepsis itself. Lactic acid was noted to be normal. Patient also had acute on chronic renal failure due to dehydration, serum creatinine subsequently improved back to baseline with IV hydration. Mild troponin leak was noted, likely due to demand ischemia, hypoxia and renal failure. Patient's symptoms gradually improved, he was able to tolerate clear liquid and then full liquid diet. He is currently medically stable for discharge, cleared by surgery. Discharge discussed with: patient, nurse, senior product consultant - Time Spent with Patient Total time spent providing and/or coordinating discharge services: Greater than 30 minutes (45 min) - Discharge Medications Prescriptions: Amoxicillin/Clavulanate [Augmentin] 875 mg PO BIDWM #4 tablet Pantoprazole Sodium [Protonix] 40 mg PO BID #60 tablet. Home Medications: OxyCODONE Immed Rel [Roxicodone 5 MG] 5 mg PO Q6HR PRN 7 Days #28 tablet [Rx] Atorvastatin [Lipitor] 40 mg PO DAILY 04/04/18 [History] Latanoprost [Xalatan] 1 drop OP HS 04/04/18 [History] Lisinopril [Zestril] 20 mg PO DAILY 04/04/18 [History] Multivit-Min/FA/Lycopen/Lutein [Centrum Silver Men Tablet] 1 tab PO DAILY [History] Zolpidem [Ambien] 10 mg PO DAILY 04/04/18 [History] hydroCHLOROthiazide [Hydrochlorothiazide] 12.5 mg PO DAILY 04/04/18 [History] Amoxicillin/Clavulanate [Augmentin] 875 mg PO BIDWM #4 tablet 04/13/18 [Rx] Pantoprazole Sodium [Protonix] 40 mg PO BID #60 tablet. 04/13/18 [Rx] Allergies/Adverse Reactions: 3 Allergy/AdvReac Type Severity Reaction Status Date / Time No Known Allergies Allergy Verified 04/09/18 11:11 Date of admission: 04/09/18 00:49 Primary care physician: Jim Reid MD Consults: 04/09/18 03:37 Consult to Surgery [CONS] Routine Consulting Provider: [facility] Reason for Consult: pneumoperitoneum Call Completed: Yes 04/12/18 17:38 Consult to Pipeline Dispatcher [CONS] Routine Reason for SW Consult: possible discharge needs 04/12/18 17:39 Consult to Occupational Therapy [CONS] Routine Comment: Evaluate, develop and implement POC Reason for Consult: s/p right hip replacement 04/04/2018 Does patient have active BEDREST order?: No Is patient medically & hemodynamically stable?: Yes Consult to Physical Therapy [CONS] Routine Comment: Evaluate, develop and implement POC Reason for Consult: s/p right hip 04/04/2018 Does patient have active BEDREST order?: No Is patient medically & hemodynamically stable?: Yes Discharging clinician: Camryn Yee Anticipated date of discharge: 04/13/18 - Constitutional Vitals: Temp Pulse Resp BP Pulse Ox 98.5 F 97 16 138/84 96 04/13/18 06:38 04/13/18 06:38 04/13/18 06:38 04/13/18 06:38 04/13/18 06:38 General appearance: Present: A&O X 3, pleasant, no acute distress, answers questions appropriately - Cardiovascular Cardiovascular exam: Present: RRR, +S1, +S2, tachycardia. Absent: diastolic murmur, gallop, rubs, systolic murmur - Patient Status Disposition: Home Health Service Condition: Fair Functional capacity at discharge: uses cane/walker Overall status at discharge: patient is progressing back to baseline - Discharge Instructions Follow Up With: Alok Escamilla DO [Partnered Physician] - 05/03/18 9:10 am Jim Reid MD [Primary Care Provider] - Additional Instructions: Full liquid diet and advance to soft diet as tolerated (avoid chicken, steak, pork, roast beef for the next 2 weeks). Avoid carbonated drinks for 2 weeks. F/up with PCP in 1-2 weeks - Diet and Activity Activity: as per physical therapy Diet: low fat, low cholesterol, low salt diet, other (full liquid diet, advance to soft) - VTE Documentation of Mechanical Device: Intermittent pneumatic compression device
--- NOTE | 2018-04-13 13:57 | Physician Discharge Referral ---
Home Health/Hosp Referral Info Transfer to: Home Health Attending Provider: Camryn Yee Provider in Charge Post Discharge: PCP - Diagnosis (1) Perforated duodenal ulcer Priority: Primary Status: Acute (2) Sepsis Priority: Primary Status: Acute (3) Elevated troponin Priority: Primary Status: Acute (4) Leukocytosis Priority: Primary Status: Acute (5) Acute kidney injury superimposed on chronic kidney disease Priority: Primary Status: Acute (6) Ankylosing spondylitis Priority: Secondary Status: Chronic (7) Hyperlipemia Priority: Secondary Status: Chronic - Respiratory Orders Smoking Cessation: Smoking cessation has been advised. For more information, call the [place] Tobacco Quit Line at 1-907-ONNN-NOW. - Diet/Nutrition Diet/Nutrition Orders: Mechanical Soft - Activity Activity Orders: Ambulate, Walker - Services Needed Following services are medically necessary services: Nursing, Physical Therapy, Occupational Therapy - Transfer Medications Prescriptions: Amoxicillin/Clavulanate [Augmentin] 875 mg PO BIDWM #4 tablet Pantoprazole Sodium [Protonix] 40 mg PO BID #60 tablet. Home Medications: OxyCODONE Immed Rel [Roxicodone 5 MG] 5 mg PO Q6HR PRN 7 Days #28 tablet [Rx] Atorvastatin [Lipitor] 40 mg PO DAILY 04/04/18 [History] Latanoprost [Xalatan] 1 drop OP HS 04/04/18 [History] Lisinopril [Zestril] 20 mg PO DAILY 04/04/18 [History] Multivit-Min/FA/Lycopen/Lutein [Centrum Silver Men Tablet] 1 tab PO DAILY [History] Zolpidem [Ambien] 10 mg PO DAILY 04/04/18 [History] hydroCHLOROthiazide [Hydrochlorothiazide] 12.5 mg PO DAILY 04/04/18 [History] Amoxicillin/Clavulanate [Augmentin] 875 mg PO BIDWM #4 tablet 04/13/18 [Rx] Pantoprazole Sodium [Protonix] 40 mg PO BID #60 tablet. 04/13/18 [Rx] Allergies/Adverse Reactions: 3 Allergy/AdvReac Type Severity Reaction Status Date / Time No Known Allergies Allergy Verified 04/09/18 11:11 Certification: Further, I certify that my clinical findings support that this patient is homebound (i.e. absences from home require considerable and taxing effort and are for medical reasons or rastafarian services or infrequently or short duration when for other reasons) because: Homebound Reason: Patient requires assistance of a person or device to safely leave home, Post-surgery restriction and or conditions limit ability to leave home, Leaving home requires considerable and taxing effort due to condition Attestation: My signature below is to certify that this patient is under my care and that I, or nurse practitioner, or a physician's assistant professor of geography working with me, has a face-to -face encounter with this patient.
[2018-04-13 15:35] VITALS: BP 134/78
== END 2018-04-13 16:53 | disposition home health service (06) | DRG 381 ==
LOC: EMEROO 20:12 → SUATTDRO 04-09 00:49 → ICNU 04-09 00:49 → 3NENU 04-11 11:51
PROVIDERS: ADMIT Internal Medicine; ATTEND Internal Medicine